=== PATIENT | female | born 1955 | race Caucasian/White ===

== ENCOUNTER → 2016-08-14 | Outpatient (CLI) | payer OTHER ==
--- NOTE | 2016-08-14 09:57 | US ---
EXAMINATION TYPE: US thyroid st tissue head/neck DATE OF EXAM: 08/14/2016 COMPARISON: NONE CLINICAL HISTORY: R13.10 Dyspagia. Dysphagia GLAND SIZE: Right Lobe: 4.3 x 1.0 x 1.7 cm Overall Parenchyma: homogenous Left Lobe: 4.0 x 0.9 x 1.5 cm Overall Parenchyma: homogeneous Isthmus Thickness: 0.3 cm NODULES RIGHT: # of nodules measured on right: 2 1. 0.3 X 0.2 x 0.2 cm hypoechoic mixed nodule at the mid pole with well-defined margins. This nodul e is wider than tall and shows no intranodular vascularity. Prior size: no previous 2. 0.2 X 0.1 x 0.2 cm hypoechoic mixed nodule at the mid pole with well-defined margins. This nodule is wider than tall and shows no intranodular vascularity. Prior size: no previous LEFT: # of nodules measured on left: 0 ISTHMUS: # of nodules measured in the isthmus: 0 Bilateral neck scanned, no evidence of lymphadenopathy. Homogeneous thyroid with multiple tiny right lobe nodules described above. IMPRESSION: 1. Small subcentimeter right lobe thyroid nodules.
== END | disposition home or self-care (01) ==
LOC: RADUSWWP 08:53
PROVIDERS: ATTEND Family Medicine
DX: E04.2 Nontoxic multinodular goiter (principal)
CPT/HCPCS: 76536

== ENCOUNTER 2016-09-28 20:05 | Emergency (ER) | payer OTHER ==
[2016-09-28 20:56] VITALS: RESP 18
--- NOTE | 2016-09-28 21:55 | XR ---
Exam: Left forearm complete HISTORY: Fall with pain. 3 views of the left forearm were obtained. FINDINGS: There is an acute complete comminuted fracture of the distal radius with minimal dorsal displacement and minimal impaction. There is also complete fracture of the ulnar styloid process. Soft tissue swel ling is noted at the wrist. IMPRESSION: Comminuted fracture of the distal radius with an ulnar styloid fracture.
--- NOTE | 2016-09-28 21:56 | XR ---
Exam: Left hand complete. 4 views left hand were obtained. FINDINGS: There is an acute comminuted minimally displaced fracture of the distal left radius. There is also co mplete fracture of the ulnar styloid. Soft tissue swelling is noted about the wrist. IMPRESSION: Complete comminuted fracture of the distal radius with an ulnar styloid fracture.
--- NOTE | 2016-09-28 22:00 | XR ---
Exam: Left wrist complete 4 views left wrist were obtained. HISTORY: Fall on outstretched hand with pain. FINDINGS: There is an acute complete comminuted and minimally dorsally displaced fracture of the distal left ra dius. There is a complete fracture of the ulnar styloid which is minimally displaced. The scapholunate interval is appropriate. No scaphoid fracture is identified at the time of this exam ination. The lunate appears appropriately rotated. IMPRESSION: Comminuted fracture of the distal left radius with an ulnar styloid fracture.
--- NOTE | 2016-09-28 22:23 | ED ---
Upper Extremity HPI - General Chief Complaint: Extremity Injury, Upper Stated Complaint: Fall Arm Pain Time Seen by Provider: 09/28/16 21:03 Source: patient Mode of arrival: ambulatory Limitations: no limitations - History of Present Illness Initial Comments: Patient is a left-handed 61-year-old female presenting to the emergency department with chief complaint of left arm pain. Patient states that approximately 2 hours prior to arrival she was out walking in her garden when she tripped over a small fence and landed on her left arm. Patient is currently rating pain 8 out of 10 exacerbated with movement minimally relieved with rest. Patient describes pain as sharp and throbbing. Patient denies any previous injury or surgery to her left upper extremity. Patient denies any numbness or tingling. Patient states she applied ice prior to arrival but doesn 't believe in taking any medications. Patient denies any recent illness, fevers , nausea, vomiting, shortness of breath, chest pain, or abdominal pain. - Related Data Home Medications Medication Instructions Recorded Confirmed No Known Home Medications [No 09/28/16 09/28/16 Known Home Medications] Allergies Allergy/AdvReac Type Severity Reaction Status Date / Time No Known Allergies Allergy Verified 09/28/16 20:56 Review of Systems ROS Statement: Those systems with pertinent positive or pertinent negative responses have been documented in the HPI. ROS Other: All systems not noted in ROS Statement are negative. Past Medical History Past Medical History: No Reported History Additional Past Medical History / Comment(s): kidney stone History of Any Multi-Drug Resistant Organisms: None Reported Past Surgical History: No Surgical Hx Reported Past Psychological History: No Psychological Hx Reported Smoking Status: Never smoker Past Alcohol Use History: None Reported Past Drug Use History: None Reported General Exam Limitations: no limitations General appearance: alert, anxious Head exam: Present: atraumatic, normocephalic, normal inspection Eye exam: Present: normal appearance Neck exam: Present: normal inspection, full ROM. Absent: tenderness, lymphadenopathy Respiratory exam: Present: normal lung sounds bilaterally. Absent: respiratory distress, wheezes, rales, rhonchi Cardiovascular Exam: Present: regular rate, normal rhythm, normal heart sounds. Absent: systolic murmur GI/Abdominal exam: Present: soft, normal bowel sounds. Absent: distended Left Shoulder Exam: Present: normal inspection, full ROM. Absent: tenderness, swelling Upper Arm exam: Present: normal inspection, full ROM. Absent: tenderness, swelling Elbow exam: Present: normal inspection, full ROM. Absent: tenderness, swelling Forearm Wrist exam: Present: tenderness, swelling, deformity. Absent: full ROM (Decreasing some motion secondary to pain), tenderness over anatomical snuff box , pain with axial thumb loading Hand Wrist exam: Present: full ROM, tenderness, ecchymosis (Ecchymosis noted to dorsal aspect of left hand). Absent: swelling, deformity Neuro motor exam: Present: wrist extension intact, thumb opposition intact, thumb IP flexion intact, thumb adduction intact, fingers 2-5 abduction intact Neurosensory exam: Present: 2-point discrimination, radial nerve intact, ulnar nerve intact, median nerve intact Vascular: Present: normal capillary refill, radial pulse, brachial pulse, ulnar pulse. Absent: vascular compromise Neurological exam: Present: alert, oriented X3, other (No focal deficits noted) . Absent: motor sensory deficit Psychiatric exam: Present: normal affect, normal mood Skin exam: Present: warm, dry, intact Course Vital Signs 09/28/16 20:52 Temperature 100.3 F H Pulse Rate 73 Respiratory 18 Rate Blood Pressure 163/85 O2 Sat by Pulse 94 L Oximetry Procedures - Orthopedic Splinting/Casting Injury #1 Side: left Upper Extremity Injury Location: forearm Upper Extremity Immobilizer: sling/shoulder immobilizer, sugar tong splint Additional Comments: Patient able to move all digits on left hand after splint application. Radial and ulna pulses palpable. No numbness or tingling per patient. Medical Decision Making - Medical Decision Making Acute comminuted minimally displaced fracture of the distal left radius with complete fracture of the ulnar styloid. Soft tissue swelling is noted above the wrist. Did speak with Ana Humphrey physician shipping and receiving assistant, for [facility] who recommended the patient be placed in splint with follow-up in office tomorrow. Patient placed in sugar tong splint and provided arm sling. Patient tolerated procedure well. Patient did receive 1 dose of Motrin in the emergency department. Patient encouraged to use ice, elevation, and pain medication for comfort. Patient agrees with treatment plan. Discharge instructions and return parameters reviewed. - Radiology Data Radiology results: report reviewed X-ray of left hand: Acute comminuted minimally displaced fracture of the distal left radius. There is also complete fracture of the ulnar styloid. Soft tissue swelling is noted above the wrist. X-ray of left wrist: Comminuted fracture of the distal left radius with an ulnar styloid fracture. X-ray of left forearm: Comminuted fracture of the distal radius with an ulnar styloid fracture. Disposition Clinical Impression: Fracture of distal radius and ulna Disposition: HOME SELF-CARE Condition: Good Instructions: Arm Fracture in Adults (ED), Splint Care (ED) Additional Instructions: Avoid activity that causes pain Ice 20 minutes 4 times Keep elevated as much as possible 24-48 hours. Continue Motrin 800 every 8 hours [id number] for next 24-48 hours Return to the emergency department with symptoms of increased swelling, pain, numbness, tingling, or foot feeling cold to touch. Follow-up with orthopedic service as directed. Referrals: Lynnette Jackson MD [Primary Care Provider] - 1-2 days Roberto Donnelly DO [Doctor of Osteopathic Medicine] - 1-2 days (Follow-up on ) Time of Disposition: 22:53
[2016-09-28] MEDS ORDERED: IBUPROFEN 800 MG TAB PO STA ×2 (22:47→23:03)
[2016-09-28 23:11] VITALS: BP 120/75; PULSE 85; TEMP 97.8
== END 2016-09-28 23:06 | disposition home or self-care (01) ==
LOC: EC 20:05
DX: S52.612A Displaced fracture of left ulna styloid process, initial encounter for closed fracture (principal); S52.502A Unspecified fracture of the lower end of left radius, initial encounter for closed fracture; W18.09XA Striking against other object with subsequent fall, initial encounter; Y92.007 Garden or yard of unspecified non-institutional (private) residence as the place of occurrence of the external cause; Y93.01 Activity, walking, marching and hiking
CPT/HCPCS: 29105; 99283

== ENCOUNTER → 2016-12-31 | Outpatient (CLI) | payer OTHER ==
--- NOTE | 2016-12-31 15:15 | BD ---
EXAMINATION TYPE: MG DEXA axial skeleton. DATE OF EXAM: 12/31/2016 COMPARISON: NONE CLINICAL HISTORY: Postmenopausal female Height: 61 IN Weight: 152 LBS FRAX RISK QUESTIONS: Alcohol (3 or more units per day): NO Family History (Parent hip fracture): NO Glucocorticoids (More than 3mos): NO (Ex: prednisone, prednisolone, methylprednisolone, dexamethasone, and hydrocortisone). History of Fracture in Adulthood: YES LEFT WRIST AGE 61 Secondary Osteoporosis: 1. Type 1 Diabetes: NO 2. Hyperthyroidism: NO 3. Menopause before 45: NO 4. Malnutrition: NO 5. Chronic liver disease: NO Rheumatoid Arthritis: NO Current Tobacco Use: NO RISK FACTORS HISTORY OF: History of Wrist Fracture: YES LEFT When: AGE 61 Active: YES Postmenopausal woman: AGE 48 MEDICATIONS: NONE EXAM MEASUREMENTS: Bone mineral densitometry was performed using the Digital [employer] System. Bone mineral density as measured about the Lumbar spine is: ----- L1-L4(G/cm2): 0.947 T Score Values are as follows: ----- L2: -2.7 ----- L3: -1.9 ----- L4: -1.7 ----- L1-L4: -1.9 Bone mineral density BASELINE Bone mineral density about the R hip (g/cm2): 0.857 Bone mineral density about the L hip (g/cm2): 0.870 T Score values are as follows: -----R Neck: -1.3 -----L Neck: -1.2 -----R Total: -0.5 -----L Total: -0.8 Bone mineral density BASELINE IMPRESSION: Osteopenia (T Score between -2.5 and -1 as noted by T score values overall in the low back and at fem oral neck level in both hips. There is slightly increased risk of fracture and the patient may be considered for treatment. Re-Screen 2-5 years. NOTE: T-SCORE=SD OF THE YOUNG ADULT MEAN.
--- NOTE | 2017-01-01 13:50 | MM ---
Reason for exam: screening (asymptomatic). Last mammogram was performed 2 years and 11 months ago. History: Patient is postmenopausal. Family history of breast cancer in sister at age 54. Benign core biopsy of the left breast, 2004. Physical Findings: A clinical breast exam by your physician is recommended on an annual basis and results should be correlated with mammographic findings. MG Screening Mammo w CAD Bilateral CC and MLO view(s) were taken. Prior study comparison: February 14, 2014, bilateral MG screening mammo w CAD. January 19, 2013, [facility] DIGITAL LEFT BREAST MAMMOGRAM w/CAD. The breast tissue is heterogeneously dense. This may lower the sensitivity of mammography. There are two masses in the upper outer quadrant of the right breast at posterior depth. No suspicious abnormality in the left breast. ASSESSMENT: Incomplete: need additional imaging evaluation, BI-RAD 0 RECOMMENDATION: Special view mammogram of the right breast. If lesion persists on supplemental views, image directed ultrasound is recommended. [facility] will attempt to contact patient to return for supplemental views and ultrasound if indicated.
== END | disposition home or self-care (01) ==
LOC: RADMAMWWP 14:19
PROVIDERS: ATTEND Family Medicine
DX: Z12.31 Encounter for screening mammogram for malignant neoplasm of breast (principal); M85.851 Other specified disorders of bone density and structure, right thigh; M85.852 Other specified disorders of bone density and structure, left thigh
CPT/HCPCS: 77080; G0202

== ENCOUNTER → 2017-01-15 | Outpatient (CLI) | payer OTHER ==
--- NOTE | 2017-01-15 12:05 | MM ---
Reason for exam: additional evaluation requested from abnormal screening. Last mammogram was performed less than 1 month ago. History: Patient is postmenopausal. Family history of breast cancer in sister at age 54. Benign core biopsy of the left breast, 2004. Physical Findings: Nurse did not find any significant physical abnormalities on exam. MG 3D Work Up W/Cad RT CC, spot compression MLO, and ML view(s) were taken of the right breast. Prior study comparison: December 31, 2016, bilateral MG screening mammo w CAD. February 14, 2014, bilateral MG screening mammo w CAD. The breast tissue is heterogeneously dense. This may lower the sensitivity of mammography. The two questioned nodular asymmetries in the upper outer quadrant do not persist on spot 3D views. However, two 5mm nodular asymmetries become apparent at 8 and 9 o'clock on the lateral view. These results were verbally communicated with the patient and result sheet given to the patient on 01/15/17. ASSESSMENT: Incomplete: need additional imaging evaluation, BI-RAD 0 RECOMMENDATION: Ultrasound of the right breast. (8-10 o'clock)
--- NOTE | 2017-01-15 12:07 | USB ---
Reason for exam: additional evaluation requested from abnormal screening. History: Patient is postmenopausal. Family history of breast cancer in sister at age 54. Benign core biopsy of the left breast, 2004. US Breast Workup Limited RT Right breast ultrasound demonstrates no cystic or solid lesion seen. Ductal ectasia noted. A 6 month follow up mammogram recommended. These results were verbally communicated with the patient and result sheet given to the patient on 01/15/17. ASSESSMENT: Probably benign, BI-RAD 3 RECOMMENDATION: Follow-up diagnostic mammogram of the right breast in 6 months. (to include ML view)
== END ==
LOC: RADMAMWWP 10:45
PROVIDERS: ATTEND Family Medicine
DX: R92.8 Other abnormal and inconclusive findings on diagnostic imaging of breast (principal)
CPT/HCPCS: 76642; G0206; G0279

== ENCOUNTER 2017-04-21 11:50 | Day surgery (SDC) | payer OTHER ==
[2017-04-17 16:50] VITALS: BMI 28.7
[~2017-04-21 11:50] MED LIST: LACTATED RINGERS 1,000 ML IV SCH
[2017-04-21] MEDS ORDERED: LIDOCAINE 1% 20 ML VIAL (10MG/ML) FOR IV START INTRADERMA ONE (13:28)
[2017-04-21 13:34] VITALS: RESP 16; TEMP 97.6
[2017-04-21] MEDS ORDERED: PROPOFOL 10 MG/ML 20 ML VIAL IV ONE (14:16)
[2017-04-21] MEDS ORDERED: LIDOCAINE 1% INJ 10MG/ML (20 ML MDV) ONE (14:16)
--- NOTE | 2017-04-21 14:40 | P.PCN ---
Date of Procedure: 04/21/17 Procedure(s) Performed: Procedure: Total colonoscopy. Preoperative diagnosis: Screening for neoplasia. Postoperative diagnosis: Sigmoid diverticulosis with no evidence of acute diverticulitis, strictures, polyps or cancer. Preparation: HalfLytely prep. Sedation: Was provided by anesthesia. Brief clinical history: The patient is a 61-year-old female who is referred for this evaluation for screening for neoplasia. She had one prior exam more than 15 years ago. Her sister had breast cancer and has been has colon cancer but there is no family history of colon cancer. She has no abdominal complaints, bleeding or anemia. Procedure: With the patient on her left lateral decubitus position and after informed consent and adequate sedation, the perianal area was inspected and it did not show any fissures or fistulas. There were no masses felt on digital rectal examination. The Olympus CFQ 160L video colonoscope was then inserted in the rectum in the usual fashion and advanced to the cecum. There were several diverticular orifices seen scattered in the sigmoid with no evidence of acute diverticulitis or strictures. No polyps or tumors were seen. I retroflexed the endoscope in the rectum before the endoscope was withdrawn. The patient tolerated the procedure well. Plan: The patient was reassured. Discussed dietary measures. I recommended repeat exam in 10 years. She will follow-up with you as planned.
[2017-04-21 14:56] VITALS: BP 121/68; PULSE 89
== END 2017-04-21 15:10 | disposition home or self-care (01) ==
LOC: ORWHC2ENDO 11:50
DX: Z12.11 Encounter for screening for malignant neoplasm of colon (principal); K57.30 Diverticulosis of large intestine without perforation or abscess without bleeding; Z87.442 Personal history of urinary calculi
CPT/HCPCS: J2001; J2704; G0121; 45378

== ENCOUNTER → 2017-04-24 | Outpatient (CLI) | payer OTHER ==
--- NOTE | 2017-04-25 09:02 | US ---
EXAMINATION TYPE: US thyroid st tissue head/neck DATE OF EXAM: 04/24/2017 COMPARISON: Thyroid ultrasound August 14, 2016 CLINICAL HISTORY: R22.1 Localized swelling, mass and lump/neck. Patient feels "marble" like sensation in throat on and off GLAND SIZE: Right Lobe: 4.1 x 1.3 x 1.5 cm Overall Parenchyma: homogenous Left Lobe: 3.8 x 0.9 x 1.4 cm Overall Parenchyma: homogeneous Isthmus Thickness: 0.3 cm NODULES RIGHT: # of nodules measured on right: 0 LEFT: # of nodules measured on left: 0 ISTHMUS: # of nodules measured in the isthmus: 0 Bilateral neck scanned, no evidence of lymphadenopathy. Tiny nodules marked prior study are insignificant measuring 3 mm or smaller. They are not present or not marked on current study IMPRESSION: Normal-sized thyroid without new worrisome nodules. No significant change from prior.
== END | disposition home or self-care (01) ==
LOC: RADUSWWP 15:38
PROVIDERS: ATTEND Family Medicine
DX: R22.1 Localized swelling, mass and lump, neck (principal)
CPT/HCPCS: 76536

== ENCOUNTER → 2018-03-23 | Outpatient (CLI) | payer OTHER ==
--- NOTE | 2018-03-23 11:50 | MM ---
Reason for exam: additional evaluation requested from prior study. Last mammogram was performed 1 year and 2 months ago. History: Patient is postmenopausal. Family history of breast cancer in sister at age 54. Benign core biopsy of the left breast, 2004. Physical Findings: Nurse did not find any significant physical abnormalities on exam. MG 3D Diag Mammo W/Cad ERON Bilateral CC and MLO view(s) were taken. Prior study comparison: January 15, 2017, right breast MG 3d work up w/cad RT. December 31, 2016, bilateral MG screening mammo w CAD. The breast tissue is heterogeneously dense. This may lower the sensitivity of mammography. Previous mammotome biopsy in the left breast. There is chronic nodularity in the left breast. No significant new findings when compared with previous films. These results were verbally communicated with the patient and result sheet given to the patient on 03/23/18. ASSESSMENT: Benign, BI-RAD 2 RECOMMENDATION: Routine screening mammogram of both breasts in 1 year.
== END | disposition home or self-care (01) ==
LOC: RADMAMWWP 10:52
PROVIDERS: ATTEND Family Medicine
DX: R92.8 Other abnormal and inconclusive findings on diagnostic imaging of breast (principal)
CPT/HCPCS: 77066; G0279; 77062

== ENCOUNTER → 2019-03-07 | Outpatient (CLI) | payer OTHER ==
[2019-03-07 17:05] LABS: Basophils # (A) 0.1 k/uL (0-0.2); Basophils % (A) 1 %; Eosinophils # (A) 0.1 k/uL (0-0.7); Eosinophils % (A) 2 %; HCT 44.6 % (34.0-46.0); HGB 13.7 gm/dL (11.4-16.0); Hypochromasia Marked; Lymphocytes # (A) 3.2 k/uL (1.0-4.8); Lymphocytes % (A) 43 %; MCH 21.7 pg (25.0-35.0); MCHC 30.6 g/dL (31.0-37.0); MCV 70.9 fL (80.0-100.0); Mean Platelet Volume 9.4; Microcytosis Moderate; Monocytes # (A) 0.3 k/uL (0-1.0); Monocytes % (A) 4 %; Neutrophils # (A) 3.6 k/uL (1.3-7.7); Neutrophils % (A) 48 %; Platelet Count 293 k/uL (150-450); RBC 6.29 m/uL (3.80-5.40); RDW 14.1 % (11.5-15.5); WBC 7.5 k/uL (3.8-10.6)
[2019-03-08 01:45] LABS: African American GFR (CKD) 111.6 (60.0-200.0); Albumin 4.7 g/dL (3.80-4.90); Albumin/Globulin Ratio 2.47 (1.60-3.17); Anion Gap 14.3 mmol/L (4.00-12.00); BUN/Creat Ratio 21.67 Ratio (12.00-20.00); Calcium 9.8 mg/dL (8.7-10.3); Carbon Dioxide 21.7 mmol/L (21.6-31.8); Chol/HDL Ratio 2.78; Globulin 1.9 g/dL (1.6-3.3); LDL Cholesterol,Calculated 179.2 mg/dL (0.0-131.0); Non-African American GFR(CKD) 96.3 (60.0-200.0); Potassium 4.2 mmol/L (3.5-5.5); Total Bilirubin 0.7 mg/dL (0.2-1.2); Total Protein 6.6 g/dL (6.2-8.2); VLDL Calculation 12.8 mg/dL (5.00-40.00)
== END | disposition home or self-care (01) ==
LOC: LABWHC1 15:56
PROVIDERS: ATTEND Family Medicine
DX: E78.5 Hyperlipidemia, unspecified (principal)
CPT/HCPCS: 36415; 80053; 80061; 84443; 85025

== ENCOUNTER → 2019-04-28 | Outpatient (CLI) | payer OTHER ==
--- NOTE | 2019-04-28 08:57 | MM ---
Reason for exam: additional evaluation requested from prior study. Last mammogram was performed 1 year and 1 month ago. History: Patient is postmenopausal. Family history of breast cancer in sister at age 54. Benign core biopsy of the left breast, 2004. Physical Findings: Nurse did not find any significant physical abnormalities on exam. MG 3D Diag Mammo W/Cad ERON Bilateral CC and MLO view(s) were taken. Prior study comparison: March 23, 2018, bilateral MG 3d diag mammo w/cad ERON. January 15, 2017, right breast MG 3d work up w/cad RT. The breast tissue is heterogeneously dense. This may lower the sensitivity of mammography. Finding: There is a 16 mm circumscribed oval mass in the left breast consistent with simple cyst on ultrasound from 2012. Previous mammotome biopsy in the left breast. There is no new dominant lesion. These results were verbally communicated with the patient and result sheet given to the patient on 04/28/19. ASSESSMENT: Benign, BI-RAD 2 RECOMMENDATION: Routine screening mammogram of both breasts in 1 year.
== END | disposition home or self-care (01) ==
LOC: RADMAMWWP 07:40
PROVIDERS: ATTEND Family Medicine
DX: R92.8 Other abnormal and inconclusive findings on diagnostic imaging of breast (principal)
CPT/HCPCS: 77066; G0279; 77062

== ENCOUNTER 2019-12-27 07:54 | Observation (INO) | payer MEDICARE, OTHER ==
[2019-12-27] MEDS ORDERED: ONDANSETRON 4 MG/2 ML VIAL IVP STA (08:15)
[2019-12-27] MEDS ORDERED: PANTOPRAZOLE 40 MG/10 ML VIAL IVP STA (08:15)
[2019-12-27] MEDS ORDERED: HYDROmorphone 1 MG/ML 1 ML SYRINGE IVP STA (08:15)
--- NOTE | 2019-12-27 08:18 | ED ---
General Adult HPI - General Chief complaint: Abdominal Pain Stated complaint: Abd pain Time Seen by Provider: 12/27/19 08:04 Source: patient, RN notes reviewed Mode of arrival: ambulatory Limitations: no limitations - History of Present Illness Initial comments: Patient is a pleasant 5 he 4-year-old female presenting to the emergency Department with abdominal discomfort. Patient has had some mild bloating over the past couple of weeks. Symptoms have worsened over the past day or 2. As comfort is now right lower abdomen. Patient had fever last night and the day before. Patient did have nausea yesterday with one episode of vomiting. No constipation or diarrhea. No history of similar symptoms previously. Discomfort is mild at this time. - Related Data Home Medications Medication Instructions Recorded Confirmed No Known Home Medications 09/28/16 03/22/19 Allergies Allergy/AdvReac Type Severity Reaction Status Date / Time No Known Allergies Allergy Verified 12/27/19 08:01 Review of Systems ROS Statement: Those systems with pertinent positive or pertinent negative responses have been documented in the HPI. ROS Other: All systems not noted in ROS Statement are negative. Constitutional: Denies: fever Eyes: Denies: eye pain ENT: Denies: ear pain Respiratory: Denies: cough Cardiovascular: Denies: chest pain Endocrine: Denies: fatigue Gastrointestinal: Reports: as per HPI, abdominal pain, nausea Genitourinary: Reports: frequency. Denies: urgency, dysuria, hematuria Musculoskeletal: Denies: back pain Skin: Denies: rash Neurological: Denies: weakness Past Medical History Past Medical History: No Reported History Additional Past Medical History / Comment(s): kidney stone History of Any Multi-Drug Resistant Organisms: None Reported Past Surgical History: No Surgical Hx Reported Additional Past Surgical History / Comment(s): COLONOSCOPY Past Anesthesia/Blood Transfusion Reactions: No Reported Reaction Past Psychological History: No Psychological Hx Reported Smoking Status: Never smoker Past Alcohol Use History: None Reported - Past Family History Brother(s) Family Medical History: Cancer Sister(s) Family Medical History: Cancer Additional Family Medical History / Comment(s): Breast cancer. Father Family Medical History: Myocardial Infarction ([place]) Mother Family Medical History: Diabetes Mellitus Additional Family Medical History / Comment(s): First cousin had colon cancer. General Exam Limitations: no limitations General appearance: alert, in no apparent distress Head exam: Present: normocephalic Eye exam: Present: normal appearance Neck exam: Present: normal inspection Respiratory exam: Present: normal lung sounds bilaterally Cardiovascular Exam: Present: regular rate, normal rhythm Expanded Peripheral pulses: 2+: Dorsalis Pedis (R), Dorsalis Pedis (L) GI/Abdominal exam: Present: soft, tenderness (Moderate tenderness right lower quadrant), normal bowel sounds. Absent: distended, guarding, rebound, rigid, p ulsatile mass Extremities exam: Present: normal inspection Neurological exam: Present: alert Psychiatric exam: Present: normal affect, normal mood Skin exam: Present: normal color Course Vital Signs 12/27/19 07:55 Temperature 97.6 F Pulse Rate 85 Respiratory 18 Rate Blood Pressure 151/93 O2 Sat by Pulse 99 Oximetry Medical Decision Making - Medical Decision Making Patient reevaluated and updated. Case was discussed with Dr. Moreno who will admit and does request antibiotics. Patient does not meet sepsis criteria at this time. - Lab Data Result diagrams: 12/27/19 08:58 12/27/19 08:58 Lab Results 12/27/19 12/27/19 12/27/19 Range/Units 08:58 08:58 08:58 WBC 11.2 H (3.8-10.6) k/uL RBC 5.67 H (3.80-5.40) m/uL Hgb 12.5 (11.4-16.0) gm/dL Hct 38.5 (34.0-46.0) % MCV 67.8 L (80.0-100.0) fL MCH 22.0 L (25.0-35.0) pg MCHC 32.5 (31.0-37.0) g/dL RDW 13.9 (11.5-15.5) % Plt Count 258 (150-450) k/uL Neutrophils % 66 % Lymphocytes % 24 % Monocytes % 6 % Eosinophils % 1 % Basophils % 1 % Neutrophils # 7.4 (1.3-7.7) k/uL Lymphocytes # 2.7 (1.0-4.8) k/uL Monocytes # 0.7 (0-1.0) k/uL Eosinophils # 0.1 (0-0.7) k/uL Basophils # 0.1 (0-0.2) k/uL Microcytosis Marked PT 9.7 (9.0-12.0) sec INR 0.9 (<1.2) APTT 23.4 (22.0-30.0) sec Sodium (137-145) mmol/L Potassium (3.5-5.1) mmol/L Chloride (98-107) mmol/L Carbon Dioxide (22-30) mmol/L Anion Gap mmol/L BUN (7-17) mg/dL Creatinine (0.52-1.04) mg/dL Est GFR (CKD-EPI)AfAm (>60 ml/min/1.73 sqM) Est GFR (CKD-EPI)NonAf (>60 ml/min/1.73 sqM) Glucose (74-99) mg/dL Plasma Lactic Acid Syed (0.7-2.0) mmol/L Calcium (8.4-10.2) mg/dL Total Bilirubin (0.2-1.3) mg/dL AST (14-36) U/L ALT (4-34) U/L Alkaline Phosphatase (38-126) U/L Total Protein (6.3-8.2) g/dL Albumin (3.5-5.0) g/dL Amylase (30-110) U/L Lipase (23-300) U/L Urine Color Colorless Urine Appearance Clear (Clear) Urine pH 7.0 (5.0-8.0) Ur Specific Stevinson 1.002 (1.001-1.035) Urine Protein Negative (Negative) Urine Glucose (UA) Negative (Negative) Urine Ketones Negative (Negative) Urine Blood Negative (Negative) Urine Nitrite Negative (Negative) Urine Bilirubin Negative (Negative) Urine Urobilinogen <2.0 (<2.0) mg/dL Ur Leukocyte Esterase Small H (Negative) Urine RBC <1 (0-5) /hpf Urine WBC 2 (0-5) /hpf Ur Squamous Epith Cells <1 (0-4) /hpf 12/27/19 12/27/19 Range/Units 08:58 08:58 WBC (3.8-10.6) k/uL RBC (3.80-5.40) m/uL Hgb (11.4-16.0) gm/dL Hct (34.0-46.0) % MCV (80.0-100.0) fL MCH (25.0-35.0) pg MCHC (31.0-37.0) g/dL RDW (11.5-15.5) % Plt Count (150-450) k/uL Neutrophils % % Lymphocytes % % Monocytes % % Eosinophils % % Basophils % % Neutrophils # (1.3-7.7) k/uL Lymphocytes # (1.0-4.8) k/uL Monocytes # (0-1.0) k/uL Eosinophils # (0-0.7) k/uL Basophils # (0-0.2) k/uL Microcytosis PT (9.0-12.0) sec INR (<1.2) APTT (22.0-30.0) sec Sodium 136 L (137-145) mmol/L Potassium 4.4 (3.5-5.1) mmol/L Chloride 102 (98-107) mmol/L Carbon Dioxide 28 (22-30) mmol/L Anion Gap 6 mmol/L BUN 13 (7-17) mg/dL Creatinine 0.57 (0.52-1.04) mg/dL Est GFR (CKD-EPI)AfAm >90 (>60 ml/min/1.73 sqM) Est GFR (CKD-EPI)NonAf >90 (>60 ml/min/1.73 sqM) Glucose 105 H (74-99) mg/dL Plasma Lactic Acid Syed 0.9 (0.7-2.0) mmol/L Calcium 9.0 (8.4-10.2) mg/dL Total Bilirubin 0.7 (0.2-1.3) mg/dL AST 25 (14-36) U/L ALT 17 (4-34) U/L Alkaline Phosphatase 87 (38-126) U/L Total Protein 6.9 (6.3-8.2) g/dL Albumin 4.0 (3.5-5.0) g/dL Amylase 78 (30-110) U/L Lipase 72 (23-300) U/L Urine Color Urine Appearance (Clear) Urine pH (5.0-8.0) Ur Specific Stevinson (1.001-1.035) Urine Protein (Negative) Urine Glucose (UA) (Negative) Urine Ketones (Negative) Urine Blood (Negative) Urine Nitrite (Negative) Urine Bilirubin (Negative) Urine Urobilinogen (<2.0) mg/dL Ur Leukocyte Esterase (Negative) Urine RBC (0-5) /hpf Urine WBC (0-5) /hpf Ur Squamous Epith Cells (0-4) /hpf - Radiology Data Radiology results: report reviewed (As discussed with radiology, computed tomography scan concerning for acute appendicitis without complication) Disposition Clinical Impression: Acute appendicitis Disposition: ADMITTED IP TO THIS HOSP Is patient prescribed a controlled substance at d/c from ED?: No Referrals: Lynnette Jackson MD [Primary Care Provider] - 1-2 days Decision Time: 10:37
[2019-12-27] MEDS: SODIUM CHLORIDE 0.9% 1,000 ML IV STA ×2 (08:58→11:03)
[2019-12-27 09:10] LABS: Basophils # (A) 0.1 k/uL (0-0.2); Basophils % (A) 1 %; Eosinophils # (A) 0.1 k/uL (0-0.7); Eosinophils % (A) 1 %; HCT 38.5 % (34.0-46.0); HGB 12.5 gm/dL (11.4-16.0); Lymphocytes # (A) 2.7 k/uL (1.0-4.8); Lymphocytes % (A) 24 %; MCHC 32.5 g/dL (31.0-37.0); MCV 67.8 fL (80.0-100.0); Mean Platelet Volume 8.7; Microcytosis Marked; Monocytes # (A) 0.7 k/uL (0-1.0); Monocytes % (A) 6 %; Neutrophils # (A) 7.4 k/uL (1.3-7.7); Neutrophils % (A) 66 %; Platelet Count 258 k/uL (150-450); RBC 5.67 m/uL (3.80-5.40); RDW 13.9 % (11.5-15.5); WBC 11.2 k/uL (3.8-10.6)
[2019-12-27 09:20] LABS: ALT 17 U/L (4-34); AST 25 U/L (14-36); African American GFR (CKD) >90 (>60 ml/min/1.73 sqM); Alkaline Phosphatase 87 U/L (38-126); Amylase 78 U/L (30-110); Anion Gap 6 mmol/L; Blood Urea Nitrogen 13 mg/dL (7-17); Carbon Dioxide 28 mmol/L (22-30); Chloride 102 mmol/L (98-107); Glucose 105 mg/dL (74-99); Lipase 72 U/L (23-300); Non-African American GFR(CKD) >90 (>60 ml/min/1.73 sqM); Potassium 4.4 mmol/L (3.5-5.1); Sodium 136 mmol/L (137-145); Total Bilirubin 0.7 mg/dL (0.2-1.3); Total Protein 6.9 g/dL (6.3-8.2)
[2019-12-27 09:23] LABS: INR 0.9 (<1.2); Partial Thromboplastin Time 23.4 sec (22.0-30.0); Prothrombin Time 9.7 sec (9.0-12.0)
[2019-12-27 09:59] LABS: Appearance,Urine Clear (Clear); Bilirubin,Urine Negative (Negative); Blood,Urine Negative (Negative); Color,Urine Colorless; Glucose,Urine (UA) Negative (Negative); Ketones,Urine Negative (Negative); Leukocyte Esterase,Urine Small (Negative); Nitrite,Urine Negative (Negative); Protein,Urine Negative (Negative); RBC,Urine <1 /hpf (0-5); Specific Gravity,Urine 1.002 (1.001-1.035); Squamous Epithelial Cell,Urine <1 /hpf (0-4); Urobilinogen,Urine <2.0 mg/dL (<2.0); WBC,Urine 2 /hpf (0-5)
--- NOTE | 2019-12-27 10:33 | CT ---
EXAMINATION TYPE: CT abdomen pelvis w con DATE OF EXAM: 12/27/2019 COMPARISON: None HISTORY: Right lower quadrant pain, bloating CT DLP: 893.7 mGycm Automated exposure control for dose reduction was used. CONTRAST: CT scan of the abdomen pelvis is performed with IV Contrast, patient injected with 100 mL of Isovue 3 00. FINDINGS- LUNG BASES-basilar subsegmental atelectasis favored over infiltrate with a 4 mm subpleural left lower lobe pulmonary nodule. LIVER/GB-tiny gallstone suspected.. PANCREAS- No gross abnormality is seen. SPLEEN- No gross abnormality is seen. ADRENALS- No gross abnormality is seen. KIDNEYS/BLADDER-calyceal diverticulum on the left are seen with cortical loss with chronic medical re nal disease. BOWEL-there is a diffuse inflammatory change in the right lower quadrant with trace amount of fluid. There is no sizable abscess. No free air. Diverticulosis of the colon. LYMPH NODES- No greater than 1cm abdominal or pelvic lymph nodes are appreciated. OSSEOUS STRUCTURES-hypertrophic and degenerative changes of the spine.. OTHER- tiny periumbilical hernia. There is a cyst in the left adnexa likely related to 1.7 cm. Surgi taya clips are seen in the left pelvis. Aorta of normal caliber. IMPRESSION- 1. Acute appendicitis with diffuse inflammatory changes involving the right lower quadrant. No absces s or free air 2. 4 mm subpleural left lower lobe pulmonary nodule likely benign. Twelve-month follow-up recommended . 3. Tiny gallstones. 4. Cortical thinning and calyceal diverticulum on the left kidney. Correlate for chronic medical yaquelin l disease.
[2019-12-27] MEDS ORDERED: NALOXONE 0.4 MG/ML 1 ML VIAL IV PRN (10:37)
[2019-12-27] MEDS ORDERED: ONDANSETRON 4 MG/2 ML VIAL IVP PRN (10:37)
[2019-12-27] MEDS ORDERED: HYDROmorphone 1 MG/ML 1 ML SYRINGE IVP PRN (10:37)
[2019-12-27] MEDS ORDERED: HYDROmorphone 0.5 MG/0.5 ML SYRINGE IVP PRN (10:37)
[2019-12-27] MEDS ORDERED: AMPICILLIN-SULBACTAM 1.5 GM in SODIUM CHLORIDE 0.9% 50 ML IVPB STA (10:44)
[2019-12-27] MEDS: SODIUM CHLORIDE 0.9% 1,000 ML IV SCH ×2 (11:03→23:02)
--- NOTE | 2019-12-27 14:50 | P.GSHP ---
History of Present Illness H&P Date: 12/27/19 CHIEF COMPLAINT: Right lower quadrant abdominal pain HISTORY OF PRESENT ILLNESS: This is a 64-year-old female with a known history of kidney stones. She presents to emergency room with complaints of right lower quadrant abdominal pain. Over the last couple weeks she's had some bloating and stomach discomfort. And over the past 2 days her abdominal pain had removed from the center of the abdomen down to the right lower quadrant. Pain is severe. She has had one episode of vomiting. She has nausea. Denies any bowel movement changes. Denies any urinary symptoms. Denies any fever chills or sweats. Computed tomography scan showed evidence of appendicitis. WBC elevated. Patient has been admitted also for acute appendicitis. PAST MEDICAL HISTORY: See list. PAST SURGICAL HISTORY: See list. MEDICATIONS: See list. ALLERGIES: See list. SOCIAL HISTORY: No illicit drug use. REVIEW OF SYSTEMS: CONSTITUTIONAL: Denies fever or chills. HEENT: Denies blurred vision, vision changes, or eye pain. Denies hemoptysis CARDIOVASCULAR: Denies chest pain or pressure. RESPIRATORY: No shortness of breath. GASTROINTESTINAL: See HPI for pertinent findings HEMATOLOGIC: Denies bleeding disorders. GENITOURINARY: Denies any blood in urine or increased urinary frequency. SKIN: Denies pruitis. Denies rash. PHYSICAL EXAM: VITAL SIGNS: Reviewed GENERAL: Well-developed in no acute distress. HEENT: No sclera icterus. Extraocular movements grossly intact. Moist buccal mucosa. Head is atraumatic, normocephalic. No nasal drainage. ABDOMEN: Soft. Nondistended. Right lower quadrant tenderness NEUROLOGIC: Alert and oriented. Cranial nerves II through XII grossly intact. LABORATORY DATA: WBC 11.2 hemoglobin 12.5 LFTs and lipase normal UA negative IMAGING: Computed tomography scan abdomen and pelvis showing acute appendicitis with diffuse inflammatory changes involving the right lower quadrant. No abscess or free air. 4 mm subpleural left lower lobe pulmonary nodule likely benign. Tiny gallstones. Cortical thinning and diverticulum in the left kidney ASSESSMENT: 1. Acute appendicitis PLAN: -Patient scheduled for a laparoscopic appendectomy tomorrow with Dr. silva -Continue IV antibiotics -Continue IV fluids -Continue pain medications as needed -Consult medicine for medical management Physician Line Crew Supervisor note has been reviewed by physician. Signing provider agrees with the documented findings, assessment, and plan of care. Past Medical History Past Medical History: No Reported History Additional Past Medical History / Comment(s): kidney stone History of Any Multi-Drug Resistant Organisms: None Reported Past Surgical History: No Surgical Hx Reported Additional Past Surgical History / Comment(s): COLONOSCOPY Past Anesthesia/Blood Transfusion Reactions: No Reported Reaction Past Psychological History: No Psychological Hx Reported Smoking Status: Never smoker Past Alcohol Use History: None Reported Past Drug Use History: None Reported - Past Family History Brother(s) Family Medical History: Cancer Sister(s) Family Medical History: Cancer Additional Family Medical History / Comment(s): Breast cancer. Father Family Medical History: Myocardial Infarction ([place]) Mother Family Medical History: Diabetes Mellitus Additional Family Medical History / Comment(s): First cousin had colon cancer. Medications and Allergies Home Medications Medication Instructions Recorded Confirmed Type No Known Home Medications 09/28/16 12/27/19 History Allergies Allergy/AdvReac Type Severity Reaction Status Date / Time No Known Allergies Allergy Verified 12/27/19 11:22 Surgical - Exam Vital Signs Temp Pulse Resp BP Pulse Ox 97.6 F 85 18 151/93 99 12/27/19 07:55 12/27/19 07:55 12/27/19 07:55 12/27/19 07:55 12/27/19 07:55 Results - Labs 12/27/19 08:58 12/27/19 08:58 Abnormal Lab Results - Last 24 Hours (Table) 12/27/19 12/27/19 12/27/19 Range/Units 08:58 08:58 08:58 WBC 11.2 H (3.8-10.6) k/uL RBC 5.67 H (3.80-5.40) m/uL MCV 67.8 L (80.0-100.0) fL MCH 22.0 L (25.0-35.0) pg Sodium 136 L (137-145) mmol/L Glucose 105 H (74-99) mg/dL Ur Leukocyte Esterase Small H (Negative) Diabetes panel 12/27/19 Range/Units 08:58 Sodium 136 L (137-145) mmol/L Potassium 4.4 (3.5-5.1) mmol/L Chloride 102 (98-107) mmol/L Carbon Dioxide 28 (22-30) mmol/L BUN 13 (7-17) mg/dL Creatinine 0.57 (0.52-1.04) mg/dL Glucose 105 H (74-99) mg/dL Calcium 9.0 (8.4-10.2) mg/dL AST 25 (14-36) U/L ALT 17 (4-34) U/L Alkaline Phosphatase 87 (38-126) U/L Total Protein 6.9 (6.3-8.2) g/dL Albumin 4.0 (3.5-5.0) g/dL Calcium panel 12/27/19 Range/Units 08:58 Calcium 9.0 (8.4-10.2) mg/dL Albumin 4.0 (3.5-5.0) g/dL Pituitary panel 12/27/19 Range/Units 08:58 Sodium 136 L (137-145) mmol/L Potassium 4.4 (3.5-5.1) mmol/L Chloride 102 (98-107) mmol/L Carbon Dioxide 28 (22-30) mmol/L BUN 13 (7-17) mg/dL Creatinine 0.57 (0.52-1.04) mg/dL Glucose 105 H (74-99) mg/dL Calcium 9.0 (8.4-10.2) mg/dL Adrenal panel 12/27/19 Range/Units 08:58 Sodium 136 L (137-145) mmol/L Potassium 4.4 (3.5-5.1) mmol/L Chloride 102 (98-107) mmol/L Carbon Dioxide 28 (22-30) mmol/L BUN 13 (7-17) mg/dL Creatinine 0.57 (0.52-1.04) mg/dL Glucose 105 H (74-99) mg/dL Calcium 9.0 (8.4-10.2) mg/dL Total Bilirubin 0.7 (0.2-1.3) mg/dL AST 25 (14-36) U/L ALT 17 (4-34) U/L Alkaline Phosphatase 87 (38-126) U/L Total Protein 6.9 (6.3-8.2) g/dL Albumin 4.0 (3.5-5.0) g/dL
[2019-12-27] MEDS ORDERED: DEXAMETHASONE SOD PHOSPHATE 4 MG/ML 1 ML VIAL IV ONE (15:52)
[2019-12-27] MEDS ORDERED: LIDOCAINE 1% (10MG/ML) FOR IV START INTRADERMA PRN (15:52)
[2019-12-27] MEDS: PIPERACILLIN-TAZOBACTAM 3.375 GM in SODIUM CHLORIDE 0.9% 100 ML IVPB SCH ×2 (16:13→23:01)
--- NOTE | 2019-12-27 16:18 | P.CONS ---
History of Present Illness - History of Present Illness this is a pleasant 64 years old female with no significant past medical history. she is a patient of Dr. Lieberman. Presents because ofright lower quadrant abdominal pain3-4 weeks duration get worse over the last 3-4 days, Like sharp pain about 5-6/10 in severity associated with vomiting one time, no change in urine or bowel habits. CT of the abdomen and pelvis with contrast:diffuse inflammatory change in the right lower quadrant.with acute appendicitis, his or free air. 4 mm subpleural left lower lobe pulmonary nodule likely benign recommend 12 months follow-up. Review of Systems CONSTITUTIONAL: No fever, no malaise, no fatigue. HEENT: No recent visual problems or hearing problems. Denied any sore throat. CARDIOVASCULAR: No orthopnea, PND, no palpitations, no syncope. PULMONARY: No shortness of breath, no cough, no hemoptysis. GASTROINTESTINAL: No diarrhea, no nausea. Normoactive bowel sounds. NEUROLOGICAL: No headaches, no weakness, no numbness. HEMATOLOGICAL: Denies any bleeding or petechiae. GENITOURINARY: Denies any burning micturition, frequency, or urgency. MUSCULOSKELETAL/RHEUMATOLOGICAL: Denies any joint pain, swelling, or any muscle pain. ENDOCRINE: Denies any polyuria or polydipsia. Past Medical History Past Medical History: No Reported History Additional Past Medical History / Comment(s): kidney stone History of Any Multi-Drug Resistant Organisms: None Reported Past Surgical History: No Surgical Hx Reported Additional Past Surgical History / Comment(s): COLONOSCOPY Past Anesthesia/Blood Transfusion Reactions: No Reported Reaction Past Psychological History: No Psychological Hx Reported Smoking Status: Never smoker Past Alcohol Use History: None Reported Past Drug Use History: None Reported - Past Family History Brother(s) Family Medical History: Cancer Sister(s) Family Medical History: Cancer Additional Family Medical History / Comment(s): Breast cancer. Father Family Medical History: Myocardial Infarction ([place]) Mother Family Medical History: Diabetes Mellitus Additional Family Medical History / Comment(s): First cousin had colon cancer. Medications and Allergies Home Medications Medication Instructions Recorded Confirmed Type No Known Home Medications 09/28/16 12/27/19 History Allergies Allergy/AdvReac Type Severity Reaction Status Date / Time No Known Allergies Allergy Verified 12/27/19 11:22 Physical Exam Vitals: Vital Signs Temp Pulse Pulse Resp BP BP Pulse Ox 12/27/19 11:45 98.9 F 64 18 124/80 99 12/27/19 11:27 99.4 F 65 18 162/76 98 12/27/19 07:55 97.6 F 85 18 151/93 99 Intake and Output 12/27/19 12/27/19 12/27/19 06:59 14:59 22:59 Other: # Voids 1 Weight 69.853 kg GENERAL: The patient is alert and oriented x3, not in any acute distress. Well developed, well nourished. HEENT: Pupils are round and equally reacting to light. EOMI. No scleral icterus. No conjunctival pallor. Normocephalic, atraumatic. No pharyngeal erythema. No thyromegaly. CARDIOVASCULAR: S1 and S2 present. No murmurs, rubs, or gallops. PULMONARY: Chest is clear to auscultation, no wheezing or crackles. -ABDOMEN: Soft, right lower quadrant tenderness, nondistended, normoactive bowel sounds. No palpable organomegaly. MUSCULOSKELETAL: No joint swelling or deformity. EXTREMITIES: No cyanosis, clubbing, or pedal edema. NEUROLOGICAL: Gross neurological examination did not reveal any focal deficits. SKIN: No rashes. No petechiae Results CBC & Chem 7: 12/27/19 08:58 12/27/19 08:58 Labs: Abnormal Lab Results - Last 24 Hours (Table) 12/27/19 12/27/19 12/27/19 Range/Units 08:58 08:58 08:58 WBC 11.2 H (3.8-10.6) k/uL RBC 5.67 H (3.80-5.40) m/uL MCV 67.8 L (80.0-100.0) fL MCH 22.0 L (25.0-35.0) pg Sodium 136 L (137-145) mmol/L Glucose 105 H (74-99) mg/dL Ur Leukocyte Esterase Small H (Negative) Assessment and Plan Assessment: acute appendicitis 4 mm subpleural left lower lobe pulmonary nodule, recommend follow-up as an out patient Mild leukocytosis Plan: this is a pleasant 64 years old female who presents with acute appendicitis. Follow-up with surgery for laparoscopic appendicectomy tomorrow.continue with antibiotic. Gentle hydration. Labs and medication were reviewed.. Continue same treatment. Continue with symptomatic treatment. Resume home medication. Monitor lytes and vitals. DVT and GI prophylaxis. Further recommendations depends on the clinical course of the patient DVT prophylaxis: Subcutaneous heparin GI Prophylaxis: Pepcid PT/OT: Pending Prognosis is guarded
[2019-12-27] MEDS: LACTATED RINGERS 1,000 ML IV SCH (16:45)
[2019-12-27] MEDS ORDERED: AMPICILLIN-SULBACTAM 1.5 GM in SODIUM CHLORIDE 0.9% 50 ML IVPB SCH (18:00)
[2019-12-27] MEDS: FAMOTIDINE 20 MG/2 ML VIAL IV SCH (23:02)
[2019-12-27] MEDS: HEPARIN SODIUM,PORCINE 5,000 UNIT/ML 1 ML VIAL SQ SCH (23:02)
[2019-12-28] MEDS ORDERED: DEXAMETHASONE SOD PHOSPHATE 4 MG/ML 1 ML VIAL IV ONE (05:00)
[2019-12-28 06:58] LABS: Basophils % (A) 1 %; Eosinophils # (A) 0.1 k/uL (0-0.7); Eosinophils % (A) 2 %; HCT 37.7 % (34.0-46.0); HGB 11.8 gm/dL (11.4-16.0); Hypochromasia Slight; Lymphocytes # (A) 2.2 k/uL (1.0-4.8); Lymphocytes % (A) 30 %; MCH 21.7 pg (25.0-35.0); MCHC 31.3 g/dL (31.0-37.0); MCV 69.5 fL (80.0-100.0); Mean Platelet Volume 8.3; Microcytosis Moderate; Monocytes # (A) 0.5 k/uL (0-1.0); Monocytes % (A) 7 %; Neutrophils # (A) 4.3 k/uL (1.3-7.7); Neutrophils % (A) 59 %; Platelet Count 266 k/uL (150-450); RBC 5.42 m/uL (3.80-5.40); RDW 13.9 % (11.5-15.5); WBC 7.3 k/uL (3.8-10.6)
[2019-12-28 07:06] LABS: African American GFR (CKD) >90 (>60 ml/min/1.73 sqM); Anion Gap 5 mmol/L; Blood Urea Nitrogen 7 mg/dL (7-17); Calcium 8.6 mg/dL (8.4-10.2); Carbon Dioxide 25 mmol/L (22-30); Chloride 109 mmol/L (98-107); Glucose 107 mg/dL (74-99); Non-African American GFR(CKD) >90 (>60 ml/min/1.73 sqM); Potassium 4.4 mmol/L (3.5-5.1); Sodium 139 mmol/L (137-145)
[2019-12-28] MEDS: PIPERACILLIN-TAZOBACTAM 3.375 GM in SODIUM CHLORIDE 0.9% 100 ML IVPB SCH ×2 (08:47→16:09)
[2019-12-28] MEDS: FAMOTIDINE 20 MG/2 ML VIAL IV SCH ×2 (08:48→20:47)
[2019-12-28] MEDS: HEPARIN SODIUM,PORCINE 5,000 UNIT/ML 1 ML VIAL SQ SCH ×2 (08:48→20:47)
[2019-12-28] MEDS: SODIUM CHLORIDE 0.9% 1,000 ML IV SCH ×2 (08:48→12:42)
[2019-12-28] MEDS ORDERED: PANTOPRAZOLE 40 MG/10 ML VIAL IV SCH (09:00)
[2019-12-28] MEDS: ACETAMINOPHEN TAB 500 MG TAB PO PRN (11:36)
--- NOTE | 2019-12-28 12:14 | P.PN ---
Subjective this is a pleasant 64 years old female with no significant past medical history. she is a patient of Dr. Lieberman. Presents because ofright lower quadrant abdominal pain3-4 weeks duration get worse over the last 3-4 days, Like sharp pain about 5-6/10 in severity associated with vomiting one time, no change in urine or bowel habits. CT of the abdomen and pelvis with contrast:diffuse inflammatory change in the right lower quadrant.with acute appendicitis, his or free air. 4 mm subpleural left lower lobe pulmonary nodule likely benign recommend 12 months follow-up. 12/28/2019 Patient still complaining of from right lower quadrant abdominal pain, no other new complaints. She is hemodynamically stable. Patient is scheduled for laparoscopic appendectomy by surgery team today. Objective - Vital Signs Vital signs: Vital Signs Temp 98.5 F 12/28/19 08:36 Pulse 67 12/28/19 08:36 Resp 20 12/28/19 08:36 BP 103/68 12/28/19 08:36 Pulse Ox 94 L 12/28/19 08:36 Intake & Output 12/27/19 12/28/19 12/28/19 18:59 06:59 18:59 Intake Total 1080 Balance 1080 Weight 69.853 kg Intake: Oral 1080 Other: # Voids 1 2 2 - Exam GENERAL: The patient is alert and oriented x3, not in any acute distress. Well developed, well nourished. HEENT: Pupils are round and equally reacting to light. EOMI. No scleral icterus. No conjunctival pallor. Normocephalic, atraumatic. No pharyngeal erythema. No thyromegaly. CARDIOVASCULAR: S1 and S2 present. No murmurs, rubs, or gallops. PULMONARY: Chest is clear to auscultation, no wheezing or crackles. -ABDOMEN: Soft, right lower quadrant tenderness, nondistended, normoactive bowel sounds. No palpable organomegaly. MUSCULOSKELETAL: No joint swelling or deformity. EXTREMITIES: No cyanosis, clubbing, or pedal edema. NEUROLOGICAL: Gross neurological examination did not reveal any focal deficits. SKIN: No rashes. no petechiae. - Labs CBC & Chem 7: 12/28/19 06:41 12/28/19 06:41 Labs: Abnormal Lab Results - Last 24 Hours (Table) 12/28/19 12/28/19 Range/Units 06:41 06:41 RBC 5.42 H (3.80-5.40) m/uL MCV 69.5 L (80.0-100.0) fL MCH 21.7 L (25.0-35.0) pg Chloride 109 H (98-107) mmol/L Glucose 107 H (74-99) mg/dL Microbiology - Last 24 Hours (Table) 12/27/19 08:58 Blood Culture - Preliminary Blood No Growth after 24 hours Assessment and Plan Assessment: acute appendicitis 4 mm subpleural left lower lobe pulmonary nodule, recommend follow-up as an outpatient Mild leukocytosis Plan: this is a pleasant 64 years old female who presents with acute appendicitis. Follow-up with surgery for laparoscopic appendicectomy tomorrow.continue with antibiotic. Gentle hydration. Labs and medication were reviewed.. Continue same treatment. Continue with symptomatic treatment. Resume home medication. Monitor lytes and vitals. DVT and GI prophylaxis. Further recommendations depends on the clinical course of the patient DVT prophylaxis: Subcutaneous heparin GI Prophylaxis: Pepcid PT/OT: Pending Prognosis is guarded
[2019-12-28] MEDS ORDERED: IV FLUID CONTINUATION 1,000 ML IV ONE (13:42)
[2019-12-28] MEDS ORDERED: GLYCOPYRROLATE 0.2 MG/ML 2 ML VIAL ONE (14:01)
[2019-12-28] MEDS ORDERED: LIDOCAINE 1% INJ 10MG/ML (20 ML MDV) ONE (14:01)
[2019-12-28] MEDS ORDERED: SUCCINYLCHOLINE CHLORIDE 100 MG/5 ML SYR IV ONE (14:01)
[2019-12-28] MEDS ORDERED: ROCURONIUM 10 MG/ML (10 ML VIAL) IV ONE (14:01)
[2019-12-28] MEDS ORDERED: MIDAZOLAM 2 MG/2 ML VIAL ONE (14:01)
[2019-12-28] MEDS ORDERED: NEOSTIGMINE 1 MG/ML 10 ML VIAL ONE (14:01)
[2019-12-28] MEDS ORDERED: KETOROLAC 15 MG/ML 1 ML VIAL ONE (14:01)
[2019-12-28] MEDS ORDERED: PROPOFOL 10 MG/ML 20 ML VIAL IV ONE (14:01)
[2019-12-28] MEDS ORDERED: fentaNYL (PF) 50 MCG/ML 2 ML AMP ONE (14:01)
[2019-12-28] MEDS ORDERED: ONDANSETRON 4 MG/2 ML VIAL IVP ONE ×2 (14:04→15:03)
[2019-12-28] MEDS ORDERED: BUPIVACAINE (PF) 0.25% 30 ML VIAL SQ ONE (14:30)
--- NOTE | 2019-12-28 14:44 | P.OP ---
Date of Procedure: 12/28/19 Preoperative Diagnosis: Appendicitis Postoperative Diagnosis: Appendicitis Procedure(s) Performed: H laparoscopic appendectomy Anesthesia: MAGGIE Surgeon: Sammy Moreno Estimated Blood Loss (ml): 5 Pathology: other (Appendix) Condition: stable Disposition: PACU Description of Procedure: HThe patient's placed on the operating table in the supine position. The patient received general anesthesia. The abdomen was prepped and draped in the usual sterile fashion. The skin was anesthetized 1% local Xylocaine at the trocar sites. Using an 11 blade the skin was incised at the umbilicus. The umbilicus was grasped with a [place] clamp and then a Veress needle was placed into the peritoneal cavity. Position of the Veress needle was confirmed with positive drop test. After adequate insufflation a 5 mm trocar was placed into the peritoneal cavity. The abdomen was further insufflated. And then the laparoscope was placed in the peritoneal cavity. Next a 5 mm trocar was placed in the midline suprapubic position. And then a 10 mm trocar was placed in the midline epigastric position. The patient was rotated with the right side up and in Trendelenburg. The appendix was visualized. The appendix appeared to be inflamed. The appendix was grasped and then using the Harmonic scissors the mesoappendix was divided. A PDS Endoloop was then placed around the base of the appendix. And then the appendix was divided using Harmonic scissors. The appendix was placed into an Endo Catch and brought out through the 10 mm trocar site. The abdomen was irrigated. There is no bleeding seen. The trochars withdrawn. The skin was closed interrupted 3-0 Monocryl suture. Dermabond dressing was applied. Patient was sent to recovery room in stable condition.
[2019-12-28] MEDS ORDERED: HYDROmorphone 0.5 MG/0.5 ML SYRINGE IVP ONE (15:07)
[2019-12-28] MEDS: LACTATED RINGERS 1,000 ML IV SCH (16:48)
[2019-12-29] MEDS: ACETAMINOPHEN TAB 500 MG TAB PO PRN ×2 (00:03→06:57)
[2019-12-29] MEDS: PIPERACILLIN-TAZOBACTAM 3.375 GM in SODIUM CHLORIDE 0.9% 100 ML IVPB SCH ×2 (00:03→07:39)
[2019-12-29] MEDS: SODIUM CHLORIDE 0.9% 1,000 ML IV SCH ×3 (00:04→09:28)
[2019-12-29] MEDS: FAMOTIDINE 20 MG/2 ML VIAL IV SCH (08:31)
[2019-12-29] MEDS: HEPARIN SODIUM,PORCINE 5,000 UNIT/ML 1 ML VIAL SQ SCH (08:31)
--- NOTE | 2019-12-29 08:47 | P.PN ---
Subjective this is a pleasant 64 years old female with no significant past medical history. she is a patient of Dr. Lieberman. Presents because ofright lower quadrant abdominal pain3-4 weeks duration get worse over the last 3-4 days, Like sharp pain about 5-6/10 in severity associated with vomiting one time, no change in urine or bowel habits. CT of the abdomen and pelvis with contrast:diffuse inflammatory change in the right lower quadrant.with acute appendicitis, his or free air. 4 mm subpleural left lower lobe pulmonary nodule likely benign recommend 12 months follow-up. 12/28/2019 Patient still complaining of from right lower quadrant abdominal pain, no other new complaints. She is hemodynamically stable. Patient is scheduled for laparoscopic appendectomy by surgery team today. 12/29/2019 Patient is status post laparoscopic appendectomy yesterday. Today's postop day #1. He is sitting up in bed, in no distress. She has stopped some residual pain at the surgical site in the right lower quadrant which is expected. No nausea vomiting, she is a liquid diet and tolerates diet well. She passes some gaseous but no bowel movement. She is hemodynamically stable. WBC is back to normal yesterday at 7.3 k. She remains on Zosyn patient is aware about her pulmonary nodules and she was asking about the size of it today. Patient states and willing to follow up with her PCP Dr. Lieberman one week as instructed. Objective - Vital Signs Vital signs: Vital Signs Temp 97.5 F L 12/29/19 07:41 Pulse 82 12/29/19 07:41 Resp 16 12/29/19 07:41 BP 94/57 12/29/19 07:41 Pulse Ox 95 12/29/19 07:41 Intake & Output 12/28/19 12/29/19 12/29/19 18:59 06:59 18:59 Intake Total 700 500 Output Total 5 1600 Balance 695 -1100 Intake: IV 700 Oral 500 Output: Urine 1600 Estimated Blood Loss 5 Other: # Voids 2 1 - Exam GENERAL: The patient is alert and oriented x3, not in any acute distress. Well developed, well nourished. HEENT: Pupils are round and equally reacting to light. EOMI. No scleral icterus. No conjunctival pallor. Normocephalic, atraumatic. No pharyngeal erythema. No thyromegaly. CARDIOVASCULAR: S1 and S2 present. No murmurs, rubs, or gallops. PULMONARY: Chest is clear to auscultation, no wheezing or crackles. -ABDOMEN: Soft, right lower quadrant tenderness, nondistended, normoactive bowel sounds. No palpable organomegaly. MUSCULOSKELETAL: No joint swelling or deformity. EXTREMITIES: No cyanosis, clubbing, or pedal edema. NEUROLOGICAL: Gross neurological examination did not reveal any focal deficits. SKIN: No rashes. no petechiae. - Labs CBC & Chem 7: 12/28/19 06:41 12/28/19 06:41 Labs: Microbiology - Last 24 Hours (Table) 12/27/19 08:58 Blood Culture - Preliminary Blood No Growth after 24 hours Assessment and Plan Assessment: acute appendicitis, status post laparoscopic appendectomy 4 mm subpleural left lower lobe pulmonary nodule, recommend follow-up as an outpatient Mild leukocytosis, improved Plan: this is a pleasant 64 years old female who presents with acute appendicitis. Status post laparoscopic appendicectomy .continue with antibiotic. Gentle hydration. Follow-up as an outpatient with PCP regarding her pulmonary nodules. Rest of management we'll defer to the surgery primary team Labs and medication were reviewed.. Continue same treatment. Continue with symptomatic treatment. Resume home medication. Monitor lytes and vitals. DVT and GI prophylaxis. Further recommendations depends on the clinical course of the patient DVT prophylaxis: Subcutaneous heparin GI Prophylaxis: Pepcid
[2019-12-29] MEDS ORDERED: HYDROcodone/APAP 5-325MG 1 EACH TAB PO PRN (10:20)
[2019-12-29 12:17] VITALS: BP 131/72; PULSE 63; RESP 18; TEMP 97.2
--- NOTE | 2019-12-29 13:49 | P.DS ---
Providers Date of admission: 12/27/19 10:37 Expected date of discharge: 12/29/19 Attending physician: Sammy Moreno Consults: 12/27/19 14:38 Consult Physician Routine Consulting Provider: Consuelo Ellis Consult Reason/Comments: Medical management Do you want consulting provider notified?: Yes Primary care physician: Lynnette Jackson Hospital Course: Discharge diagnosis 1. Acute appendicitis status post laparoscopic appendectomy Hospital course his is a 64-year-old female with a known history of kidney stones. She presents to emergency room with complaints of right lower quadrant abdominal pain. Over the last couple weeks she's had some bloating and stomach discomfort. And over the past 2 days her abdominal pain had removed from the center of the abdomen down to the right lower quadrant. Pain is severe. She has had one episode of vomiting. She has nausea. Computed tomography scan showed evidence of appendicitis. WBC elevated. Patient's pain is controlled. She is tolerating diet. She's afebrile. She is ambulating without difficulty. She is stable for discharge. Physician Recreation Director note has been reviewed by physician. Signing provider agrees with the documented findings, assessment, and plan of care. Patient Condition at Discharge: Stable Plan - Discharge Summary Discharge Rx Participant: No New Discharge Prescriptions: New Docusate [Colace] 100 mg PO BID #30 capsule Levofloxacin [Levaquin] 500 mg PO DAILY 7 Days #7 tab Hydrocodone/Acetaminophen [[place] 5-325] 1 tab PO Q6HR PRN 3 Days #12 tab PRN Reason: Pain Discharge Medication List Docusate [Colace] 100 mg PO BID #30 capsule 12/29/19 [Rx] Hydrocodone/Acetaminophen [[place] 5-325] 1 tab PO Q6HR PRN 3 Days #12 tab 12/29/19 [Rx] Levofloxacin [Levaquin] 500 mg PO DAILY 7 Days #7 tab 12/29/19 [Rx] Follow up Appointment(s)/Referral(s): Lynnette Jackson MD [Primary Care Provider] - 01/06/20 1:30 pm Sammy Moreno MD [STAFF PHYSICIAN] - 01/05/20 3:00 pm Activity/Diet/Wound Care/Special Instructions: No driving while taking [place] No lifting over 10 pounds You may shower. No soaking or tub baths for 2 weeks Very light activity until you are reevaluated at your follow up appointment with your surgeon Discharge Disposition: HOME SELF-CARE
== END 2019-12-29 14:11 | disposition home or self-care (01) ==
LOC: EC 07:54 → 6PED 10:37
PROVIDERS: ADMIT Surgery; ATTEND Surgery
DX: K35.80 Unspecified acute appendicitis (principal); Z87.442 Personal history of urinary calculi; Z80.3 Family history of malignant neoplasm of breast; Z82.49 Family history of ischemic heart disease and other diseases of the circulatory system; Z83.3 Family history of diabetes mellitus; Z80.0 Family history of malignant neoplasm of digestive organs; R91.1 Solitary pulmonary nodule; N28.89 Other specified disorders of kidney and ureter; K80.20 Calculus of gallbladder without cholecystitis without obstruction
CPT/HCPCS: 96372 ×2; 96376; 96374; 96375; 99285; 36415; 80053; 80048; 82150; 83605; 83690; 85025 ×2; 85610; 85730; 81001; 87040; 74177; 44970; G0378 ×3; J2543 ×3; J2250; J1644 ×2; J1100; J2710; J2405 ×2; J2001; J3010; J1170 ×2; J0295; J1885; J0330; J2704; C9113; Q9967

== ENCOUNTER → 2020-01-18 | Outpatient (CLI) | payer MEDICARE, OTHER ==
[2020-01-18 07:06] LABS: African American GFR (CKD) >90 (>60 ml/min/1.73 sqM); Blood Urea Nitrogen 19 mg/dL (7-17); Non-African American GFR(CKD) 80 (>60 ml/min/1.73 sqM)
--- NOTE | 2020-01-18 09:03 | CT ---
EXAMINATION TYPE: CT chest w con DATE OF EXAM: 01/18/2020 COMPARISON: Correlation CT abdomen and pelvis 12/27/2019 HISTORY: 64-year-old female Solitary Pulmonary Nodule TECHNIQUE: Contiguous axial scanning of the chest after the administration of 100 mL of Isovue 300. Coronal/sagittal reconstructions performed. CT DLP: 195.5mGycm. Automatic exposure control utilized for a dose reduction. FINDINGS: Known 1.1 cm cyst within the upper-outer quadrant of left breast. However, there is secondary 7 mm no dularity near the 12 to 1:00 position centrally, axial image 19 and diagnostic mammographic workup to exclude a new density. Heart upper limits of normal in size without pericardial effusion. Aorta normal caliber with mild atherosclerotic arch calcifications and conventional arch vessel branc bhavani anatomy. Borderline enlarged caliber to the main right and the pulmonary arteries measuring up to 2.6 cm. This can reflect underlying pulmonary hypertension. Scattered nonenlarged mediastinal lymph nodes. No thoracic lymphadenopathy by CT size criteria. 4 mm right middle lobe pulmonary nodules, axial image 35. 5 mm subpleural pulmonary nodule posterolateral left lower lobe, axial image 47. Some strandy atelectasis or scarring within the inferior lingula. No consolidation or pleural effusion. Small hiatal hernia. Visualized upper abdomen shows multiple cortical defects throughout the left ki dney suggesting prior vascular or infectious insults, lower to the recent prior exam. Partially visua lized descending colonic diverticulosis. Bones: Mild to moderate degenerative disc disease midthoracic spine. IMPRESSION: 1. A few bilateral pulmonary nodules measuring up to 5 mm. Twelve-month follow-up CT chest recommende d to reassess. 2. Known cyst in the upper outer quadrant of the left breast. However, there is a second area of 7 mm nodularity near the 12 to 1:00 position centrally in the left breast. Diagnostic mammogram and possi ble ultrasound evaluation recommended to further evaluate. 3. Possible underlying pulmonary arterial hypertension. 4. Small hiatal hernia. Left-sided colonic diverticulosis. Multiple cortical defects within the left kidney suggesting prior vascular or infectious insults.
== END | disposition home or self-care (01) ==
LOC: RADCTMAIN 06:20
PROVIDERS: ATTEND Family Medicine
DX: R91.8 Other nonspecific abnormal finding of lung field (principal); R91.1 Solitary pulmonary nodule; N63.21 Unspecified lump in the left breast, upper outer quadrant; K44.9 Diaphragmatic hernia without obstruction or gangrene; K57.30 Diverticulosis of large intestine without perforation or abscess without bleeding
CPT/HCPCS: 82565; 84520; 71260; 36415; Q9967

== ENCOUNTER → 2020-01-31 | Outpatient (CLI) | payer MEDICARE, OTHER ==
--- NOTE | 2020-01-31 09:05 | MM ---
Reason for exam: clinical finding. Last mammogram was performed 9 months ago. History: Patient is postmenopausal. Family history of breast cancer in sister at age 54. Benign core biopsy of the left breast, 2005. Physical Findings: Nurse did not find any significant physical abnormalities on exam. MG 3D Diag Mammo W/Cad LT CC and MLO view(s) were taken of the left breast. Prior study comparison: April 28, 2019, bilateral MG 3d diag mammo w/cad ERON. March 23, 2018, bilateral MG 3d diag mammo w/cad ERON. The breast tissue is heterogeneously dense. This may lower the sensitivity of mammography. Finding: There is a 14 mm equal density (isodense), circumscribed round mass in the 1 o'clock anterior position of the left breast. There is no discrete abnormality 7mm [address] No significant changes in finding since April 28, 2019 and March 23, 2018. These results were verbally communicated with the patient and result sheet given to the patient on 01/31/20. ASSESSMENT: Benign, BI-RAD 2 RECOMMENDATION: Routine screening mammogram of both breasts in 3 months. Back on schedule for April 2020.
== END | disposition home or self-care (01) ==
LOC: RADMAMWWP 07:00
PROVIDERS: ATTEND Family Medicine
DX: N63.20 Unspecified lump in the left breast, unspecified quadrant (principal)
CPT/HCPCS: 77065; G0279; 77061

== ENCOUNTER → 2020-03-19 | Outpatient (CLI) | payer MEDICARE, OTHER ==
--- NOTE | 2020-03-20 09:47 | XR ---
EXAMINATION TYPE: XR thoracic spine 2V DATE OF EXAM: 03/19/2020 CLINICAL HISTORY: pain TECHNIQUE: Frontal, lateral, and swimmer's view of thoracic spine are obtained. COMPARISON: None. FINDINGS: Thoracic spine show satisfactory alignment without evidence of acute fracture or dislocatio n. Vertebral body heights are preserved. Moderate multilevel degenerative disc space narrowing. Vi sualized ribs are unremarkable. IMPRESSION: No acute fracture or dislocation is seen in the thoracic spine. ICD 10 NO FRACTURE, INIT IAL EVALUATION
== END | disposition home or self-care (01) ==
LOC: RADXRMAIN 14:27
PROVIDERS: ATTEND Family Medicine
DX: M54.5 Low back pain (principal)
CPT/HCPCS: 72070

== ENCOUNTER → 2020-08-10 | Outpatient (CLI) | payer MEDICARE, OTHER ==
--- NOTE | 2020-08-14 10:28 | MM ---
Reason for exam: screening (asymptomatic). Last mammogram was performed 6 months ago. History: Patient is postmenopausal. Family history of breast cancer in sister at age 54. Benign core biopsy of the left breast, 2004. Physical Findings: A clinical breast exam by your physician is recommended on an annual basis and results should be correlated with mammographic findings. MG 3D Screening Mammo W/Cad Bilateral CC and MLO view(s) were taken. XCCL view(s) were taken of the right breast. Prior study comparison: January 31, 2020, left breast MG 3d diag mammo w/cad LT. April 28, 2019, bilateral MG 3d diag mammo w/cad ERON. The breast tissue is heterogeneously dense. This may lower the sensitivity of mammography. Previous mammotome biopsy in the left breast. There is chronic nodularity in the left breast. Central lateral right CC asymmetric density does not persist on XCCL. No significant changes when compared with prior studies. ASSESSMENT: Benign, BI-RAD 2 RECOMMENDATION: Routine screening mammogram of both breasts in 1 year.
== END | disposition home or self-care (01) ==
LOC: RADMAMWWP 06:58
PROVIDERS: ATTEND Family Medicine
DX: Z12.31 Encounter for screening mammogram for malignant neoplasm of breast (principal); Z78.0 Asymptomatic menopausal state; Z80.3 Family history of malignant neoplasm of breast
CPT/HCPCS: 77063; 77067

== ENCOUNTER → 2020-09-12 | Outpatient (CLI) | payer MEDICARE, OTHER ==
--- NOTE | 2020-09-13 08:43 | BD ---
EXAMINATION TYPE: Axial Bone Density DATE OF EXAM: 09/12/2020 COMPARISON: 12/31/2016 CLINICAL HISTORY: Height: 61 IN Weight: 153 LBS RISK FACTORS HISTORY OF: History of Wrist Fracture: YES LEFT FX AGE 61 Surgery to Wrist (left): YES LEFT AGE 61 Active: YES Diet low in dairy products/other sources of calcium: YES Postmenopausal woman: AGE 47 MEDICATIONS: Additional Medications: NONE EXAM MEASUREMENTS: Bone mineral densitometry was performed using the Arithmatica System. Bone mineral density as measured about the Lumbar spine is: ----- L1-L4(G/cm2): 0.934 T Score Values are as follows: ----- L2: -2.2 ----- L3: -2.2 ----- L4: -1.9 ----- L1-L4: -2.0 Bone mineral density has: Decreased -0.2% since study of: 12/31/2016 Bone mineral density about the R hip (g/cm2): 0.871 Bone mineral density about the L hip (g/cm2): 0.903 T Score values are as follows: -----R Neck: -1.2 -----L Neck: -1.0 -----R Total: -0.5 -----L Total: -1.4 Bone mineral density has: Decreased -4.1% since study of: 12/31/2016 IMPRESSION: Osteopenia (T Score between -2.5 and -1). There is slightly increased risk of fracture and the patient may be considered for treatment. Re-Screen 2-5 years. NOTE: T-SCORE=SD OF THE YOUNG ADULT MEAN.
== END | disposition home or self-care (01) ==
LOC: RADBDWWP 07:57
PROVIDERS: ATTEND Family Medicine
DX: Z13.820 Encounter for screening for osteoporosis (principal); M85.80 Other specified disorders of bone density and structure, unspecified site
CPT/HCPCS: 77080

== ENCOUNTER 2021-01-01 08:58 | Inpatient (IN) | payer MEDICARE, OTHER ==
[2021-01-01] MEDS ORDERED: SODIUM CHLORIDE 0.9% 1,000 ML IV STA (09:33)
[2021-01-01] MEDS ORDERED: ALBUTEROL HFA INHALER INHALATION STA (09:33)
[2021-01-01] MEDS ORDERED: DEXAMETHASONE SOD PHOSPHATE 10 MG/ML 1 ML VIAL IVP STA (09:34)
[2021-01-01] MEDS ORDERED: IBUPROFEN 600 MG TAB PO STA (09:34)
[2021-01-01] MEDS ORDERED: ACETAMINOPHEN TAB 500 MG TAB PO STA (09:34)
--- NOTE | 2021-01-01 09:38 | ED ---
General Adult HPI - General Chief complaint: Shortness of Breath Stated complaint: positive covid Time Seen by Provider: 01/01/21 09:00 Source: patient, EMS, RN notes reviewed, old records reviewed Mode of arrival: ambulatory Limitations: no limitations - History of Present Illness Initial comments: This is a 65-year-old female who presents emergency department stating that she started having symptoms and his little and was tested positive for the last week for COVID. Patient states since then she become more fatigued continues to have a fever and continues to have some shortness of breath. Patient states she continues to cough. Patient states she's not eating or drinking lately. Patient states she has severe overall fatigue. Patient denies any chest pain or palpitations. Patient states she does have hemoptysis per patient denies abdominal pain patient was nausea vomiting diarrhea. Patient's any loss of taste or smell. - Related Data Previous Rx's Medication Instructions Recorded Docusate [Colace] 100 mg PO BID #30 capsule 12/29/19 Hydrocodone/Acetaminophen [[place] 1 tab PO Q6HR PRN 3 Days #12 tab 12/29/19 5-325] Levofloxacin [Levaquin] 500 mg PO DAILY 7 Days #7 tab 12/29/19 Allergies Allergy/AdvReac Type Severity Reaction Status Date / Time No Known Allergies Allergy Verified 01/01/21 09:22 Review of Systems ROS Statement: Those systems with pertinent positive or pertinent negative responses have been documented in the HPI. ROS Other: All systems not noted in ROS Statement are negative. Past Medical History Past Medical History: No Reported History Additional Past Medical History / Comment(s): kidney stone History of Any Multi-Drug Resistant Organisms: None Reported Past Surgical History: No Surgical Hx Reported Additional Past Surgical History / Comment(s): COLONOSCOPY Past Anesthesia/Blood Transfusion Reactions: No Reported Reaction Past Psychological History: No Psychological Hx Reported Smoking Status: Never smoker Past Alcohol Use History: None Reported Past Drug Use History: None Reported - Past Family History Brother(s) Family Medical History: Cancer Sister(s) Family Medical History: Cancer Additional Family Medical History / Comment(s): Breast cancer. Father Family Medical History: Myocardial Infarction ([place]) Mother Family Medical History: Diabetes Mellitus Additional Family Medical History / Comment(s): First cousin had colon cancer. General Exam - General Exam Comments Initial Comments: GENERAL: Patient is well-developed and well-nourished. Patient is nontoxic and well- hydrated and is in mild distress. ENT: Neck is soft and supple. No significant lymphadenopathy is noted. Oropharynx is clear. Moist mucous membranes. Neck has full range of motion without eliciting any pain. EYES: The sclera were anicteric and conjunctiva were pink and moist. Extraocular movements were intact and pupils were equal round and reactive to light. Eyelids were unremarkable. PULMONARY: Patient is crackles bilateral bases. CARDIOVASCULAR: There is a regular rate and rhythm without any murmurs gallops or rubs. ABDOMEN: Soft and nontender with normal bowel sounds. SKIN: Skin is clear with no lesions or rashes and otherwise unremarkable. NEUROLOGIC: Patient is alert and oriented x3. Cranial nerves II through XII are grossly intact. Motor and sensory are also intact. Normal speech, volume and content. Symmetrical smile. MUSCULOSKELETAL: Normal extremities with adequate strength and full range of motion. No lower extremity swelling or edema. No calf tenderness. LYMPHATICS: No significant lymphadenopathy is noted PSYCHIATRIC: Normal psychiatric evaluation. Limitations: no limitations Course Vital Signs 01/01/21 09:18 Temperature 99.8 F H Pulse Rate 96 Respiratory 20 Rate Blood Pressure 146/87 O2 Sat by Pulse 99 Oximetry Medical Decision Making - Medical Decision Making EKG shows normal sinus rhythm at 89 bpm [place] interval 134 QRS is 62 QT interval 344 QTC is 418. Patient's EKG shows no ST segment elevation or depression. X-ray shows bilateral foot is consistent with code. Computed tomography scan shows no obvious PE but does show a right breast mass which is follow-up with her mammogram. Patient does have infiltrates on the CAT scan as well. I spoke with because he agreed to admit the patient admitted the patient wr ote admitting orders. Patient was oxygenating 87% on room air - Lab Data Result diagrams: 01/01/21 09:45 01/01/21 09:45 Lab Results 01/01/21 01/01/21 01/01/21 Range/Units 09:45 09:45 09:45 WBC 6.4 (3.8-10.6) k/uL RBC 6.27 H (3.80-5.40) m/uL Hgb 13.4 (11.4-16.0) gm/dL Hct 42.3 (34.0-46.0) % MCV 67.5 L (80.0-100.0) fL MCH 21.4 L (25.0-35.0) pg MCHC 31.7 (31.0-37.0) g/dL RDW 14.5 (11.5-15.5) % Plt Count 214 (150-450) k/uL MPV 9.0 Neutrophils % 79 % Lymphocytes % 13 % Monocytes % 6 % Eosinophils % 0 % Basophils % 1 % Neutrophils # 5.0 (1.3-7.7) k/uL Lymphocytes # 0.9 L (1.0-4.8) k/uL Monocytes # 0.4 (0-1.0) k/uL Eosinophils # 0.0 (0-0.7) k/uL Basophils # 0.0 (0-0.2) k/uL Microcytosis Marked PT 9.8 (9.0-12.0) sec INR 0.9 (<1.2) APTT 24.7 (22.0-30.0) sec Sodium 135 L (137-145) mmol/L Potassium 3.9 (3.5-5.1) mmol/L Chloride 102 (98-107) mmol/L Carbon Dioxide 26 (22-30) mmol/L Anion Gap 7 mmol/L BUN 8 (7-17) mg/dL Creatinine 0.46 L (0.52-1.04) mg/dL Est GFR (CKD-EPI)AfAm >90 (>60 ml/min/1.73 sqM) Est GFR (CKD-EPI)NonAf >90 (>60 ml/min/1.73 sqM) Glucose 123 H (74-99) mg/dL Plasma Lactic Acid Syed (0.7-2.0) mmol/L Calcium 8.7 (8.4-10.2) mg/dL Total Bilirubin 0.3 (0.2-1.3) mg/dL AST 52 H (14-36) U/L ALT 28 (4-34) U/L Alkaline Phosphatase 73 (38-126) U/L Troponin I (0.000-0.034) ng/mL Total Protein 6.5 (6.3-8.2) g/dL Albumin 3.6 (3.5-5.0) g/dL 01/01/21 01/01/21 Range/Units 09:45 09:45 WBC (3.8-10.6) k/uL RBC (3.80-5.40) m/uL Hgb (11.4-16.0) gm/dL Hct (34.0-46.0) % MCV (80.0-100.0) fL MCH (25.0-35.0) pg MCHC (31.0-37.0) g/dL RDW (11.5-15.5) % Plt Count (150-450) k/uL MPV Neutrophils % % Lymphocytes % % Monocytes % % Eosinophils % % Basophils % % Neutrophils # (1.3-7.7) k/uL Lymphocytes # (1.0-4.8) k/uL Monocytes # (0-1.0) k/uL Eosinophils # (0-0.7) k/uL Basophils # (0-0.2) k/uL Microcytosis PT (9.0-12.0) sec INR (<1.2) APTT (22.0-30.0) sec Sodium (137-145) mmol/L Potassium (3.5-5.1) mmol/L Chloride (98-107) mmol/L Carbon Dioxide (22-30) mmol/L Anion Gap mmol/L BUN (7-17) mg/dL Creatinine (0.52-1.04) mg/dL Est GFR (CKD-EPI)AfAm (>60 ml/min/1.73 sqM) Est GFR (CKD-EPI)NonAf (>60 ml/min/1.73 sqM) Glucose (74-99) mg/dL Plasma Lactic Acid Syed 1.0 (0.7-2.0) mmol/L Calcium (8.4-10.2) mg/dL Total Bilirubin (0.2-1.3) mg/dL AST (14-36) U/L ALT (4-34) U/L Alkaline Phosphatase (38-126) U/L Troponin I <0.012 (0.000-0.034) ng/mL Total Protein (6.3-8.2) g/dL Albumin (3.5-5.0) g/dL Disposition Clinical Impression: Pneumonia due to COVID-19 virus, Breast mass Disposition: ADMITTED IP TO THIS HOSP Referrals: Lynnette Jackson MD [Primary Care Provider] - 1-2 days Time of Disposition: 10:54
[2021-01-01 09:51] LABS: Basophils % (A) 1 %; Eosinophils % (A) 0 %; HCT 42.3 % (34.0-46.0); HGB 13.4 gm/dL (11.4-16.0); Lymphocytes # (A) 0.9 k/uL (1.0-4.8); Lymphocytes % (A) 13 %; MCH 21.4 pg (25.0-35.0); MCHC 31.7 g/dL (31.0-37.0); MCV 67.5 fL (80.0-100.0); Microcytosis Marked; Monocytes # (A) 0.4 k/uL (0-1.0); Monocytes % (A) 6 %; Neutrophils % (A) 79 %; Platelet Count 214 k/uL (150-450); RBC 6.27 m/uL (3.80-5.40); RDW 14.5 % (11.5-15.5); WBC 6.4 k/uL (3.8-10.6)
[2021-01-01 10:03] LABS: INR 0.9 (<1.2); Partial Thromboplastin Time 24.7 sec (22.0-30.0); Prothrombin Time 9.8 sec (9.0-12.0)
[2021-01-01 10:14] LABS: ALT 28 U/L (4-34); AST 52 U/L (14-36); African American GFR (CKD) >90 (>60 ml/min/1.73 sqM); Albumin 3.6 g/dL (3.5-5.0); Alkaline Phosphatase 73 U/L (38-126); Anion Gap 7 mmol/L; Blood Urea Nitrogen 8 mg/dL (7-17); Calcium 8.7 mg/dL (8.4-10.2); Carbon Dioxide 26 mmol/L (22-30); Chloride 102 mmol/L (98-107); Glucose 123 mg/dL (74-99); Non-African American GFR(CKD) >90 (>60 ml/min/1.73 sqM); Potassium 3.9 mmol/L (3.5-5.1); Sodium 135 mmol/L (137-145); Total Bilirubin 0.3 mg/dL (0.2-1.3); Total Protein 6.5 g/dL (6.3-8.2)
--- NOTE | 2021-01-01 10:22 | XR ---
EXAMINATION TYPE: XR chest 2V DATE OF EXAM: 01/01/2021 COMPARISON: Chest CT January 18, 2020 HISTORY: Shortness of breath and fever TECHNIQUE: Frontal and lateral views of the chest are obtained. FINDINGS: There there are new bilateral lower lung and peripheral left midlung opacities. The cardi ac silhouette size is stable and mildly enlarged. Slight underlying scoliotic curvature. IMPRESSION: Mild cardiomegaly with bilateral multifocal peripheral and basilar opacities left greate r than right. Findings consistent with covid-19 infection. Correlate clinically.
--- NOTE | 2021-01-01 10:50 | CT ---
EXAMINATION TYPE: CT chest angio for PE DATE OF EXAM: 01/01/2021 COMPARISON: 01/18/2000 HISTORY: SOB, covid positive CT DLP: 249.6 mGycm Automated exposure control for dose reduction was used. CONTRAST: CT Chest for pulmonary embolism performed with with IV Contrast, patient injected with 100 mL of Isov ue 370. FINDINGS: LUNGS: There is bilateral lower lobe infiltrate correlate for pneumonia. No pleural effusion or pneum othorax. Additional multifocal areas of groundglass infiltrate. A degree of chronic obstructive pulmo nary disease in the differential diagnosis. 2 mm subpleural nodule seen in the upper lobes likely smith ign but too small to characterize. MEDIASTINUM: There is motion artifact which limits the exam. Ather osclerotic change of the aorta. Heart size is mildly prominent. Suggestion coronary artery calcificat ion. Assessment the pulmonary arteries is limited due to respiratory motion artifact. Grossly no central p ulmonary embolism is seen. No definite filling defects within the visualized pulmonary arteries to coffey ggest pulmonary embolism. OTHER: Hypertrophic and degenerative changes of the spine. Abnormal soft tissue attenuation in the retroareolar portion of the right breast as well as a nodular density in the lateral margin of the le ft breast recommend follow-up mammogram. Renal cysts suspected which have been reported by previous C T scan. IMPRESSION: 1. Multifocal pneumonia suspected correlate clinically to exclude pulmonary edema. 2. Limited assessment of the pulmonary arteries distal and secondary branches due to motion. No diagn ostic evidence of pulmonary embolism as visualized. 3. Abnormal soft tissue attenuation in the retroareolar portion of the right breast as well as a nodu lar density in the lateral margin of the left breast recommend follow-up mammogram.
[2021-01-01] MEDS: ALBUTEROL HFA INHALER INHALATION SCH ×3 (12:55→20:32)
--- NOTE | 2021-01-01 13:20 | P.CNPUL ---
History of Present Illness Consult date: 01/01/21 Requesting physician: Consuelo Ellis Reason for consult: dyspnea Chief complaint: Shortness of breath, weakness, fever History of present illness: This is a very pleasant 65-year-old female patient a past history of kidney stones. She presented to the emergency room earlier this morning with comp laints of increasing shortness of breath, cough congestion fatigue and weakness. She was diagnosed with COVID-19 10 days ago at urgent care. She is not vaccinated. She's had a poor appetite. Fevers. Progressive shortness of breath. Some hemoptysis. Chest x-ray shows bilateral multifocal peripheral and basilar opacities left greater than right. He scan of the chest revealed multifocal pneumonia. Limited assessment for pulmonary arteries distal and secondary branches. No diagnostic evidence of pulmonary embolism. Consistent with COVID-19 infection. There were incidental findings of soft tissue attenuation in the retroareolar portion of the right breast as well as a nodular density in the lateral margin of the left breast. White count 6.4. Hemoglobin 13.4. Lymphocytes 0.9. Sodium 135. Potassium 3.9. Creatinine 0.46. He is seen today in consultation in the emergency room. She is currently sitting on the stretcher. Awake and alert in no acute distress. Initially hypoxemic at 88% on room air. Currently 98% on 2 L/m per nasal cannula. Afebrile. Hemodynamically stable. Review of Systems REVIEW OF SYSTEMS: CONSTITUTIONAL: Denies weakness, fatigue, fevers. Denies any recent significant weight loss or weight gain. EYES: Denies change in vision. EARS, NOSE, MOUTH, THROAT: Denies headaches, denies sore throat. CARDIOVASCULAR: Denies chest pain, palpitations or syncopal episodes. RESPIRATORY: Positive for shortness of breath, cough, congestion and hemoptysis. GASTROINTESTINAL: Poor appetite, denies abdominal pain GENITOURINARY: Denies hematuria, denies infections. MUSKULOSKELETAL: Denies pain, denies swelling. INTEGUMENTARY: Denies rash, denies eczema. NEUROLOGICAL: Denies recent memory loss, no recent seizure activity. PSYCHIATRIC: Denies anxiety, denies depression. HEMATOLOGIC/LYMPHATIC: Denies anemia, denies enlarged lymph nodes. Past Medical History Past Medical History: No Reported History Additional Past Medical History / Comment(s): kidney stone History of Any Multi-Drug Resistant Organisms: None Reported Past Surgical History: No Surgical Hx Reported Additional Past Surgical History / Comment(s): COLONOSCOPY Past Anesthesia/Blood Transfusion Reactions: No Reported Reaction Past Psychological History: No Psychological Hx Reported Smoking Status: Never smoker Past Alcohol Use History: None Reported Past Drug Use History: None Reported - Past Family History Brother(s) Family Medical History: Cancer Sister(s) Family Medical History: Cancer Additional Family Medical History / Comment(s): Breast cancer. Father Family Medical History: Myocardial Infarction (MS) Mother Family Medical History: Diabetes Mellitus Additional Family Medical History / Comment(s): First cousin had colon cancer. Medications and Allergies Home Medications Medication Instructions Recorded Confirmed Type Alendronate Sodium [Fosamax] 70 mg PO FR 01/01/21 01/01/21 History Ascorbic Acid [Vitamin C] 500 mg PO DAILY 01/01/21 01/01/21 History Cholecalciferol (Vitamin D3) 75 mcg PO DAILY 01/01/21 01/01/21 History [Vitamin D3 (3000 Iu)] Zinc Gluconate [Zinc] 50 mg PO DAILY 01/01/21 01/01/21 History Allergies Allergy/AdvReac Type Severity Reaction Status Date / Time No Known Allergies Allergy Verified 01/01/21 09:22 Physical Exam Vitals: Vital Signs Temp Pulse Resp BP Pulse Ox 01/01/21 11:41 98 01/01/21 11:39 98.6 F 98 18 139/84 88 L 01/01/21 09:18 99.8 F H 96 20 146/87 99 Intake and Output 12/31/20 01/01/21 01/01/21 22:59 06:59 14:59 Other: # Voids 1 Weight 65.771 kg GENERAL EXAM: Alert, very pleasant 65-year-old female, on 2 L nasal cannula, fairly comfortable in no apparent distress. HEAD: Normocephalic. EYES: Normal reaction of pupils, equal size. NOSE: Clear with pink turbinates. THROAT: No erythema or exudates. NECK: No masses, no JVD. CHEST: No chest wall deformity. LUNGS: Equal air entry with crackles in the bilateral posterior bases. CVS: S1 and S2 normal with no audible murmur, regular rhythm. ABDOMEN: No hepatosplenomegaly, normal bowel sounds, no guarding or rigidity. SPINE: No scoliosis or deformity SKIN: No rashes CENTRAL NERVOUS SYSTEM: No focal deficits, tone is normal in all 4 extremities. EXTREMITIES: There is no peripheral edema. No clubbing, no cyanosis. Peripheral pulses are intact. Results - Laboratory Findings CBC and BMP: 01/01/21 09:45 01/01/21 09:45 PT/INR, D-dimer PT 9.8 sec (9.0-12.0) 01/01/21 09:45 INR 0.9 (<1.2) 01/01/21 09:45 Abnormal lab findings: Abnormal Labs 01/01/21 01/01/21 09:45 09:45 RBC 6.27 H MCV 67.5 L MCH 21.4 L Lymphocytes # 0.9 L Sodium 135 L Creatinine 0.46 L Glucose 123 H AST 52 H - Diagnostic Findings Chest x-ray: image reviewed CT scan - chest: image reviewed Assessment and Plan Assessment: 1 Acute hypoxemic respiratory failure secondary to acute COVID-19 pneumonia. Not vaccinated. Outside the window for Remdesivir. 2 History of kidney stones Plan: The patient was seen and evaluated by Dr. Turner Chest x-ray, CAT scans and labs reviewed Add Decadron, Lovenox, vitamin supplements Titrate the FiO2 as tolerated Obtain inflammatory markers Will need outpatient mammogram We will continue to follow and make further recommendations based on her clinical status I, the cosigning physician, performed a history & physical examination of the patient. Lungs sounds crackles in the bilateral posterior bases. Maintaining good O2 saturations in the 90s on 2 L/m per nasal cannula. I discussed the assessment and plan of care with my nurse practitioner, Divine Coon. I attest to the above consultation as dictated by her. Time with Patient: Greater than 30
[2021-01-01] MEDS: ENOXAPARIN 40 MG/0.4 ML SYRINGE SQ SCH (14:34)
[2021-01-01] MEDS: ZINC SULFATE 220 MG CAP PO SCH (14:34)
[2021-01-01] MEDS: CHOLECALCIFEROL 25 MCG (1000 IU) TABLET PO SCH (14:35)
[2021-01-01] MEDS ORDERED: ALPRAZolam 0.25 MG TAB PO PRN (14:36)
--- NOTE | 2021-01-01 17:21 | HP ---
HISTORY AND PHYSICAL DATE OF SERVICE: 01/01/2021 CHIEF COMPLAINTS: Shortness of breath and cough. HISTORY OF PRESENT ILLNESS: This 65-year-old woman with a past medical history of nephrolithiasis, history of colonoscopy, being followed by Dr. Jackson in the outpatient setting, was having symptoms of cough and shortness of breath. The patient went to Urgent Care last week and was tested positive, but after that the patient was fatigued and the patient continued to have fever and shortness of breath. The patient was not eating and drinking. Because of multiple complications, the patient came to [facility] and was admitted for further evaluation and treatment. MCV was found to be 67.5, sodium 135, and the patient is admitted for further evaluation and treatment. The initial evaluation showed room-air pulse ox 88%, indicating acute hypoxic respiratory failure. The patient also had a CT angio of the chest. A chest x-ray which was done in the ER and personally reviewed by me showed evidence of bilateral COVID-19 pneumonia, right more than the left. A CT angio was also done which showed no evidence of pulmonary embolism, but the CT scan did show bilateral pulmonary infiltrates suggestive of COVID-19 pneumonia, again predominantly in the lower part. The patient was admitted for further evaluation and treatment. Pulmonary consultation with Dr. Turner is ongoing at this time. There is no history of any fever, rigor or chills at this time. Abnormal soft tissue attenuation in the portion of the right breast was also noted with some nodules also noted. Follow-up mammogram mass been suggested. There is no history of any fever, rigor or chills at this time. The patient is unvaccinated. PAST MEDICAL HISTORY: History of nephrolithiasis. History of colonoscopy. MEDICATIONS PRIOR TO ADMISSION: Zinc, vitamin D3, vitamin C, Fosamax. Doses are reviewed. ALLERGIES: NONE. FAMILY HISTORY: History of breast cancer in the family. SOCIAL HISTORY: No history of smoking. No history of alcohol intake. REVIEW OF SYSTEMS: ENT: No diminished hearing. No diminished vision. CARDIOVASCULAR SYSTEM: As mentioned earlier. RESPIRATORY SYSTEM: As mentioned earlier. GI: No nausea, vomiting, diarrhea. : No dysuria. NERVOUS SYSTEM: No numbness, weakness. ALLERGY/IMMUNOLOGY: No asthma or hay fever. MUSCULOSKELETAL: As mentioned earlier. HEMATOLOGY/ONCOLOGY: No history of anemia. ENDOCRINE: No history of diabetes or hypothyroidism. CONSTITUTIONAL: As mentioned earlier. DERMATOLOGY: Negative. RHEUMATOLOGY: Negative. PSYCHIATRY: As mentioned earlier. PHYSICAL EXAM: Pulse is 98, blood pressure 139/84, respiration 18, temperature 98.6, pulse ox 88% on room air. HEENT: Conjunctivae normal. Oral mucosa moist. CARDIOVASCULAR: S1, S2 muffled. RESPIRATION: Breath sounds diminished at the bases. A few scattered rhonchi. ABDOMEN: Soft, non-tender. NERVOUS SYSTEM: Moves all 4 limbs. No focal motor or sensory deficit. LYMPHATICS: No lymph node palpable in neck, axillae or groin. SKIN: No ulcer, rash, bleeding. JOINTS: No active deforming arthropathy. LABS: WBC 6.2, hemoglobin 13.4, sodium 130, potassium 3.9. ASSESSMENT: 1. Acute COVID-19 infection with acute COVID-19 bilateral interstitial pneumonia with acute hypoxic respiratory failure, present on admission. 2. Hyponatremia. 3. Microcytosis. 4. Lymphopenia. 5. Elevated AST. 6. Increased random blood sugar. 7. Abnormal densities of the breast tissue in the CT scan. 8. History of nephrolithiasis. 9. History of colonoscopy. 10.FULL CODE. RECOMMENDATIONS AND DISCUSSION: In this 65-year-old woman who presented with multiple complex medical issues, we will monitor the patient closely, continue the current medications, continue symptomatic treatment. Will initiate Lovenox and the usual medications for COVID-19, dexamethasone. The patient is probably out of the window for remdesivir. Follow the patient closely with Dr. Turner. I would also recommend a serum procalcitonin level. The prognosis is guarded because of multiple complex medical issues. Further recommendations to follow. A copy of this dictation is being forwarded to Dr. Jackson, who is the primary physician. MMODL / IJN: [id number] / ELMER
[2021-01-01] MEDS: FAMOTIDINE 20 MG TAB PO SCH (20:02)
[2021-01-02] MEDS: ALBUTEROL HFA INHALER INHALATION SCH ×4 (08:19→19:50)
[2021-01-02] MEDS: ASCORBIC ACID 500 MG TAB PO SCH (10:01)
[2021-01-02] MEDS: FAMOTIDINE 20 MG TAB PO SCH ×2 (10:01→20:18)
[2021-01-02] MEDS: dexAMETHasone 2 MG TAB PO SCH (10:01)
[2021-01-02] MEDS: ENOXAPARIN 40 MG/0.4 ML SYRINGE SQ SCH (10:01)
[2021-01-02] MEDS: CHOLECALCIFEROL 25 MCG (1000 IU) TABLET PO SCH (10:01)
[2021-01-02] MEDS: ZINC SULFATE 220 MG CAP PO SCH (10:01)
[2021-01-02] MEDS ORDERED: ONDANSETRON 4 MG/2 ML VIAL IVP PRN (10:47)
[2021-01-02 10:58] LABS: ALT 31 U/L (8-44); AST 60 U/L (13-35); Albumin 3.5 g/dL (3.8-4.9); Albumin/Globulin Ratio 1.38 (1.60-3.17); Alkaline Phosphatase 70 U/L (41-126); BUN/Creat Ratio 12.96 Ratio (12.00-20.00); Blood Urea Nitrogen 7.2 mg/dL (9.0-27.0); Calcium 8.5 mg/dL (8.7-10.3); Carbon Dioxide 22.9 mmol/L (21.6-31.8); Chloride 102 mmol/L (96-109); Globulin 2.5 g/dL (1.6-3.3); Glucose 107 mg/dL (70-110); Non-African American GFR(CKD) 97.5 (60.0-200.0); Potassium 5.2 mmol/L (3.5-5.5); Sodium 140 mmol/L (135-145); Total Bilirubin <0.20 mg/dL (0.30-1.20)
--- NOTE | 2021-01-02 11:28 | P.PN ---
Subjective This is a pleasant 65 years old female with no significant past medical history presents because of falling and respiratory symptoms. Patient says that she has been diagnosed with Covid about 10 days ago when she had fever. Gradually she was getting more weaker, more short of breath and she fell in the bathroom with the help with her she called 911 She is fully awake and oriented and she denies any chest pain or abdominal pain. She vomited once this morning. She has decreased appetite Her oxygen requirements went up today from 2 L/m To 4-5 L/m. With oxygen saturation of 92% CBC is unremarkable and ESR is normal at 17. Recent negative at 0.59. INR is normal at 0.9. BMP is unremarkable. Creatinine normal 0.6. Liver enzymes not elevated. Ohcalcitonin is normal at 0.06. Increased LDH 764 and C-reactive protein 7.0. Increased ferritin of 673. Nodular density in the left breast CTA of the chest: No pulmonary embolism. Left breast nodule and the recommended mammogram. Multifocal pneumonia. Patient currently is on vitamin C, vitamin D and zinc. She is on Lovenox 40 mg daily and dexamethasone 6 mg by mouth daily. Objective - Vital Signs Vital signs: Vital Signs Temp 98.7 F 01/02/21 09:09 Pulse 82 01/02/21 09:09 Resp 20 01/02/21 09:09 BP 147/83 01/02/21 09:09 Pulse Ox 92 L 01/02/21 10:03 Intake & Output 01/01/21 01/02/21 01/02/21 18:59 06:59 18:59 Weight 65.771 kg Other: Voiding Method Toilet Bedside Commode # Voids 1 1 - Exam GENERAL: The patient is alert and oriented x3, not in any acute distress. Well developed, well nourished. HEENT: Pupils are round and equally reacting to light. EOMI. No scleral icterus. No conjunctival pallor. Normocephalic, atraumatic. No pharyngeal erythema. No thyromegaly. CARDIOVASCULAR: S1 and S2 present. No murmurs, rubs, or gallops. -PULMONARY: Chest is clear to auscultation, no wheezing or crackles. Bilateral crepitation ABDOMEN: Soft, nontender, nondistended, normoactive bowel sounds. No palpable organomegaly. MUSCULOSKELETAL: No joint swelling or deformity. EXTREMITIES: No cyanosis, clubbing, or pedal edema. NEUROLOGICAL: Gross neurological examination did not reveal any focal deficits. SKIN: No rashes. no petechiae. - Labs CBC & Chem 7: 01/01/21 09:45 01/02/21 05:58 Labs: Abnormal Lab Results - Last 24 Hours (Table) 01/01/21 01/02/21 Range/Units 15:42 05:58 Anion Gap 14.70 H (4.00-12.00) mmol/L BUN 7.2 L (9.0-27.0) mg/dL Calcium 8.5 L (8.7-10.3) mg/dL Ferritin 673.0 H (10.0-291.0) ng/mL Total Bilirubin <0.20 L (0.30-1.20) mg/dL AST 60 H (13-35) U/L Lactate Dehydrogenase 764 H (313-618) U/L C-Reactive Protein 7.0 H (<1.0) mg/dL Total Protein 6.0 L (6.2-8.2) g/dL Albumin 3.5 L (3.8-4.9) g/dL Albumin/Globulin Ratio 1.38 L (1.60-3.17) g/dL Assessment and Plan Assessment: Acute bilateral covidpneumonia Acute hypoxic respiratory failure Increased inflammatory markers Possible acute viral gastroenteritis secondary to Covid infection Nodular density of the left breast, recommended mammogram as an outpatient Plan: This is a pleasant 65 years old female who presents with cough with pneumonia C, vitamin D and zinc Continue with dexamethasone Pulmonary consult Zofran as needed Labs and medication were reviewed.. Continue same treatment. Continue with symptomatic treatment. Resume home medication. Monitor lytes and vitals. DVT and GI prophylaxis. Further recommendationsas per clinical course of the patient DVT prophylaxis: Subcutaneous Lovenox GI Prophylaxis: Pepcid Prognosis is guarded
--- NOTE | 2021-01-02 11:50 | P.PN ---
Subjective Progress Note Date: 01/02/21 Principal diagnosis: Shortness of breath, fever and weakness This is a very pleasant 65-year-old female patient a past history of kidney stones. She presented to the emergency room earlier this morning with complaints of increasing shortness of breath, cough congestion fatigue and weakness. She was diagnosed with COVID-19 10 days ago at urgent care. She is not vaccinated. She's had a poor appetite. Fevers. Progressive shortness of breath. Some hemoptysis. Chest x-ray shows bilateral multifocal peripheral and basilar opacities left greater than right. He scan of the chest revealed multifocal pneumonia. Limited assessment for pulmonary arteries distal and secondary branches. No diagnostic evidence of pulmonary embolism. Consistent with COVID-19 infection. There were incidental findings of soft tissue attenuation in the retroareolar portion of the right breast as well as a nodular density in the lateral margin of the left breast. White count 6.4. Hemoglobin 13.4. Lymphocytes 0.9. Sodium 135. Potassium 3.9. Creatinine 0.46. He is seen today in consultation in the emergency room. She is currently sitting on the stretcher. Awake and alert in no acute distress. Initially hypoxemic at 88% on room air. Currently 98% on 2 L/m per nasal cannula. Afebrile. Hemodynamically stable. On 01/02/2021 patient seen in follow-up on medical surgical floor, yesterday patient was admitted with a diagnosis of acute hypoxic respiratory failure related to acute COVID-19 pneumonia, this morning she is on 2 L of oxygen, and her pulse ox is 83-84%, and subsequently to has been turned up to 5 L and her pulse ox came up to 90%. Clinically she is breathing comfortably, denies worsening dyspnea, no tachypnea, no use of accessory muscles of breathing. She is awake and alert, in no acute distress, resting in bed. She is coughing occasionally, not producing any phlegm, she is on Decadron 6 mg daily, prophylactic Lovenox. Physical exam reveals bibasilar crackles. No wheezing. No complaint of chest discomfort. D-dimer came back at 0.59, electrolytes were within normal limits, B1 was 7, and creatinine was 0.6, her ferritin level was 673, LDH was 764, CRP was 7, follow-up inflammatory markers are pending for today, pro-calcitonin level was negative at 0.06. No nausea vomiting or diarrhea, patient is tolerating oral intake, no loss of taste or smell. Objective - Vital Signs Vital signs: Vital Signs Temp 98.7 F 01/02/21 09:09 Pulse 82 01/02/21 09:09 Resp 20 01/02/21 09:09 BP 147/83 01/02/21 09:09 Pulse Ox 92 L 01/02/21 10:03 Intake & Output 01/01/21 01/02/21 01/02/21 18:59 06:59 18:59 Weight 65.771 kg Other: Voiding Method Toilet Bedside Commode # Voids 1 1 - Exam GENERAL EXAM: Alert, very pleasant, 65-year-old white female, on 5 L of oxygen with pulse ox of 90% comfortable in no apparent distress. HEAD: Normocephalic/atraumatic. EYES: Normal reaction of pupils, equal size. Conjunctiva pink, sclera white. NOSE: Clear with pink turbinates. THROAT: No erythema or exudates. NECK: No masses, no JVD, no thyroid enlargement, no adenopathy. CHEST: No chest wall deformity. Symmetrical expansion. LUNGS: Equal air entry with basilar rales CVS: Regular rate and rhythm, normal S1 and S2, no gallops, no murmurs, no rubs ABDOMEN: Soft, nontender. No hepatosplenomegaly, normal bowel sounds, no guarding or rigidity. EXTREMITIES: No clubbing, no edema, no cyanosis, 2+ pulses and upper and lower extremities. MUSCULOSKELETAL: Muscle strength and tone normal. SPINE: No scoliosis or deformity SKIN: No rashes CENTRAL NERVOUS SYSTEM: Alert and oriented -3. No focal deficits, tone is normal in all 4 extremities. PSYCHIATRIC: Alert and oriented -3. Appropriate affect. Intact judgment and insight. - Labs CBC & Chem 7: 01/01/21 09:45 01/02/21 05:58 Labs: Abnormal Lab Results - Last 24 Hours (Table) 01/01/21 01/02/21 Range/Units 15:42 05:58 Anion Gap 14.70 H (4.00-12.00) mmol/L BUN 7.2 L (9.0-27.0) mg/dL Calcium 8.5 L (8.7-10.3) mg/dL Ferritin 673.0 H (10.0-291.0) ng/mL Total Bilirubin <0.20 L (0.30-1.20) mg/dL AST 60 H (13-35) U/L Lactate Dehydrogenase 764 H (313-618) U/L C-Reactive Protein 7.0 H (<1.0) mg/dL Total Protein 6.0 L (6.2-8.2) g/dL Albumin 3.5 L (3.8-4.9) g/dL Albumin/Globulin Ratio 1.38 L (1.60-3.17) g/dL Assessment and Plan Plan: Assessment: #1. Acute hypoxic respiratory failure related to acute COVID-19 pneumonia. Patient was outside the window for Remdesivir, she was diagnosed with COVID-19 10 days prior at an urgent care facility. Patient is not vaccinated against COVID-19. Clinically on supportive treatment with steroids, prophylactic anti-coagulation and vitamins #2. Increased inflammatory markers related to the above #3. Mild hyponatremia, improved with IV hydration #4. Abnormal densities of the breast tissue on the computed tomography scan of the chest, will need follow-up #5. History of nephrolithiasis Plan: Continue current medical treatment FiO2 is up to 5 L Continue titrating FiO2 to keep O2 saturation at 90% and above Continue current dose Decadron and Lovenox No CT evidence of pulmonary embolism We'll follow inflammatory markers and d-dimer We'll monitor for worsening dyspnea and hypoxia I performed a history & physical examination of the patient and discussed their management with my nurse practitioner, Verónica Santana. I reviewed the nurse practitioner's note and agree with the documented findings and plan of care. Lung sounds are positive for dim breath sounds throughout the lung mo. The findings and the impression was discussed with the patient. I attest to the documentation by the nurse practitioner. Time with Patient: Less than 30
[2021-01-02 12:00] LABS: Basophils # (A) 0.01 X 10*3/uL (0.00-0.10); Basophils % (A) 0.1 %; Eosinophils # (A) 0 X 10*3/uL (0.04-0.35); Eosinophils % (A) 0 %; HCT 41.6 % (37.2-46.3); HGB 12.6 g/dL (12.0-15.0); Lymphocytes # (A) 1.83 X 10*3/uL (0.90-5.00); Lymphocytes % (A) 20.9 %; MCHC 30.3 g/dL (32.0-37.0); MCV 65.9 fL (80.0-97.0); Monocytes # (A) 0.81 X 10*3/uL (0.20-1.00); Monocytes % (A) 9.3 %; Neutrophils # (A) 6.04 X 10*3/uL (1.80-7.70); Neutrophils % (A) 69.1 %; Platelet Count 265 X 10*3/uL (140-440); RBC 6.31 X 10*6/uL (4.10-5.20); RDW 16.8 % (11.5-14.5); WBC 8.74 X 10*3/uL (4.50-10.00)
[2021-01-02 12:01] LABS: Microcytosis (M) 2+
[2021-01-02] MEDS: ACETAMINOPHEN TAB 500 MG TAB PO PRN (16:31)
[2021-01-02] MEDS: IBUPROFEN 400 MG TAB PO PRN (21:23)
[2021-01-03] MEDS: ALBUTEROL HFA INHALER INHALATION SCH ×4 (09:19→20:52)
[2021-01-03] MEDS: dexAMETHasone 2 MG TAB PO SCH (10:05)
[2021-01-03] MEDS: CHOLECALCIFEROL 25 MCG (1000 IU) TABLET PO SCH (10:05)
[2021-01-03] MEDS: ENOXAPARIN 40 MG/0.4 ML SYRINGE SQ SCH (10:05)
[2021-01-03] MEDS: ASCORBIC ACID 500 MG TAB PO SCH (10:05)
[2021-01-03] MEDS: FAMOTIDINE 20 MG TAB PO SCH ×2 (10:06→20:14)
[2021-01-03] MEDS: ZINC SULFATE 220 MG CAP PO SCH (10:06)
--- NOTE | 2021-01-03 11:24 | P.PN ---
Subjective This is a pleasant 65 years old female with no significant past medical history presents because of falling and respiratory symptoms. Patient says that she has been diagnosed with Covid about 10 days ago when she had fever. Gradually she was getting more weaker, more short of breath and she fell in the bathroom with the help with her she called 911 She is fully awake and oriented and she denies any chest pain or abdominal pain. She vomited once this morning. She has decreased appetite Her oxygen requirements went up today from 2 L/m To 4-5 L/m. With oxygen saturation of 92% CBC is unremarkable and ESR is normal at 17. Recent negative at 0.59. INR is normal at 0.9. BMP is unremarkable. Creatinine normal 0.6. Liver enzymes not elevated. Ohcalcitonin is normal at 0.06. Increased LDH 764 and C-reactive protein 7.0. Increased ferritin of 673. Nodular density in the left breast CTA of the chest: No pulmonary embolism. Left breast nodule and the recommended mammogram. Multifocal pneumonia. Patient currently is on vitamin C, vitamin D and zinc. She is on Lovenox 40 mg daily and dexamethasone 6 mg by mouth daily. 01/03/2021 Patient is awake and alert, still tachypneic especially after exertion and after she had a shower this morning. However oxygen requirement is the same since yesterday at 4 L/m. No chest pain. No diarrhea. No other new complaints. However she is coughing vigorously and Robitussin is added. She is afebrile and rest of vitals are stable. D-dimer is negative this morning at 0.47. Rest of labs and inflammatory markers are pending. Decreased stool on dexamethasone, vitamin C, vitamin D and zinc. Also she is on Lovenox and Pepcid Objective - Vital Signs Vital signs: Vital Signs Temp 98.0 F 01/03/21 10:00 Pulse 100 01/03/21 10:00 Resp 18 01/03/21 10:00 BP 117/76 01/03/21 10:00 Pulse Ox 95 01/03/21 10:00 Intake & Output 01/02/21 01/03/21 01/03/21 18:59 06:59 18:59 Other: Voiding Method Toilet Bedside Commode # Voids 1 1 - Exam GENERAL: The patient is alert and oriented x3, not in any acute distress. Well developed, well nourished. HEENT: Pupils are round and equally reacting to light. EOMI. No scleral icterus. No conjunctival pallor. Normocephalic, atraumatic. No pharyngeal erythema. No thyromegaly. CARDIOVASCULAR: S1 and S2 present. No murmurs, rubs, or gallops. -PULMONARY: Chest is clear to auscultation, no wheezing or crackles. Bilateral crepitation ABDOMEN: Soft, nontender, nondistended, normoactive bowel sounds. No palpable organomegaly. MUSCULOSKELETAL: No joint swelling or deformity. EXTREMITIES: No cyanosis, clubbing, or pedal edema. NEUROLOGICAL: Gross neurological examination did not reveal any focal deficits. SKIN: No rashes. no petechiae. - Labs CBC & Chem 7: 01/02/21 05:58 01/02/21 05:58 Labs: Abnormal Lab Results - Last 24 Hours (Table) 01/02/21 Range/Units 05:58 RBC 6.31 H (4.10-5.20) X 10*6/uL MCV 65.9 L (80.0-97.0) fL MCH 20.0 L (27.0-32.0) pg MCHC 30.3 L (32.0-37.0) g/dL RDW 16.8 H (11.5-14.5) % Immature Gran # 0.05 H (0.00-0.04) X 10*3/uL Eosinophils # 0 L (0.04-0.35) X 10*3/uL Assessment and Plan Assessment: Acute bilateral covidpneumonia Acute hypoxic respiratory failure Increased inflammatory markers Possible acute viral gastroenteritis secondary to Covid infection Nodular density of the left breast, recommended mammogram as an outpatient Plan: This is a pleasant 65 years old female who presents with cough with pneumonia Continue with vitamin C, vitamin D and zinc Continue with dexamethasone Pulmonary consult Zofran as needed Labs and medication were reviewed.. Continue same treatment. Continue with symptomatic treatment. Resume home medication. Monitor lytes and vitals. DVT and GI prophylaxis. Further recommendationsas per clinical course of the patient DVT prophylaxis: Subcutaneous Lovenox GI Prophylaxis: Pepcid Prognosis is guarded
--- NOTE | 2021-01-03 12:49 | P.PN ---
Subjective Progress Note Date: 01/03/21 Principal diagnosis: Shortness of breath, fever and weakness This is a very pleasant 65-year-old female patient a past history of kidney stones. She presented to the emergency room earlier this morning with complaints of increasing shortness of breath, cough congestion fatigue and weakness. She was diagnosed with COVID-19 10 days ago at urgent care. She is not vaccinated. She's had a poor appetite. Fevers. Progressive shortness of breath. Some hemoptysis. Chest x-ray shows bilateral multifocal peripheral and basilar opacities left greater than right. He scan of the chest revealed multifocal pneumonia. Limited assessment for pulmonary arteries distal and secondary branches. No diagnostic evidence of pulmonary embolism. Consistent with COVID-19 infection. There were incidental findings of soft tissue attenuation in the retroareolar portion of the right breast as well as a nodular density in the lateral margin of the left breast. White count 6.4. Hemoglobin 13.4. Lymphocytes 0.9. Sodium 135. Potassium 3.9. Creatinine 0.46. He is seen today in consultation in the emergency room. She is currently sitting on the stretcher. Awake and alert in no acute distress. Initially hypoxemic at 88% on room air. Currently 98% on 2 L/m per nasal cannula. Afebrile. Hemodynamically stable. On 01/02/2021 patient seen in follow-up on medical surgical floor, yesterday patient was admitted with a diagnosis of acute hypoxic respiratory failure related to acute COVID-19 pneumonia, this morning she is on 2 L of oxygen, and her pulse ox is 83-84%, and subsequently to has been turned up to 5 L and her pulse ox came up to 90%. Clinically she is breathing comfortably, denies worsening dyspnea, no tachypnea, no use of accessory muscles of breathing. She is awake and alert, in no acute distress, resting in bed. She is coughing occasionally, not producing any phlegm, she is on Decadron 6 mg daily, prophylactic Lovenox. Physical exam reveals bibasilar crackles. No wheezing. No complaint of chest discomfort. D-dimer came back at 0.59, electrolytes were within normal limits, B1 was 7, and creatinine was 0.6, her ferritin level was 673, LDH was 764, CRP was 7, follow-up inflammatory markers are pending for today, pro-calcitonin level was negative at 0.06. No nausea vomiting or diarrhea, patient is tolerating oral intake, no loss of taste or smell. On 01/03/2001 patient seen in follow-up on medical surgical floor, she is resting comfortably in bed, still coughing, but no chest discomfort, vital signs have been stable, she is on 4 L of oxygen pulse ox is 95-97%, no worsening dyspnea, he said no acute events overnight, no complaints of chest discomfort, no fever or chills, she remains on Decadron 6 mg daily, Lovenox, she is on Robitussin-DM for the cough, and a COVID-19 vitamins. Today's labs have been reviewed, d-dimer remains normal at 0.47, and inflammatory markers are still pending for today. Objective - Vital Signs Vital signs: Vital Signs Temp 98.0 F 01/03/21 10:00 Pulse 100 01/03/21 10:00 Resp 18 01/03/21 10:00 BP 117/76 01/03/21 10:00 Pulse Ox 95 01/03/21 10:00 Intake & Output 01/02/21 01/03/21 01/03/21 18:59 06:59 18:59 Other: Voiding Method Toilet Bedside Commode # Voids 1 1 - Exam GENERAL EXAM: Alert, very pleasant, 65-year-old white female, on 4 L of oxygen with pulse ox of 95% comfortable in no apparent distress. HEAD: Normocephalic/atraumatic. EYES: Normal reaction of pupils, equal size. Conjunctiva pink, sclera white. NOSE: Clear with pink turbinates. THROAT: No erythema or exudates. NECK: No masses, no JVD, no thyroid enlargement, no adenopathy. CHEST: No chest wall deformity. Symmetrical expansion. LUNGS: Equal air entry with basilar rales CVS: Regular rate and rhythm, normal S1 and S2, no gallops, no murmurs, no rubs ABDOMEN: Soft, nontender. No hepatosplenomegaly, normal bowel sounds, no guarding or rigidity. EXTREMITIES: No clubbing, no edema, no cyanosis, 2+ pulses and upper and lower extremities. MUSCULOSKELETAL: Muscle strength and tone normal. SPINE: No scoliosis or deformity SKIN: No rashes CENTRAL NERVOUS SYSTEM: Alert and oriented -3. No focal deficits, tone is normal in all 4 extremities. PSYCHIATRIC: Alert and oriented -3. Appropriate affect. Intact judgment and insight. - Labs CBC & Chem 7: 01/02/21 05:58 01/02/21 05:58 Assessment and Plan Plan: Assessment: #1. Acute hypoxic respiratory failure related to acute COVID-19 pneumonia. Patient was outside the window for Remdesivir, she was diagnosed with COVID-19 10 days prior at an urgent care facility. Patient is not vaccinated against COVID-19. Clinically on supportive treatment with steroids, prophylactic anti- coagulation and vitamins #2. Increased inflammatory markers related to the above #3. Mild hyponatremia, improved with IV hydration #4. Abnormal densities of the breast tissue on the computed tomography scan of the chest, will need follow-up #5. History of nephrolithiasis Plan: Continue current medical treatment FiO2 is stable at 4 L Weaning FiO2 to keep O2 sats is at or above 90% Continue current dose Decadron and Lovenox Incentive spirometer, encouraged patient to sit up in the chair, reposition self in bed, self prone We'll monitor for worsening dyspnea and hypoxia Continue to follow clinical course I performed a history & physical examination of the patient and discussed their management with my nurse practitioner, Verónica Santana. I reviewed the nurse practitioner's note and agree with the documented findings and plan of care. Lung sounds are positive for dim breath sounds throughout the lung mo. The findings and the impression was discussed with the patient. I attest to the documentation by the nurse practitioner. Time with Patient: Less than 30
[2021-01-03 13:11] LABS: African American GFR (CKD) 109.9 (60.0-200.0); Anion Gap 13.6 mmol/L (4.00-12.00); BUN/Creat Ratio 16.58 Ratio (12.00-20.00); C Reactive Protein 6.8 mg/dL (0.00-0.80); Carbon Dioxide 27.7 mmol/L (21.6-31.8); Non-African American GFR(CKD) 94.8 (60.0-200.0); Potassium 4.4 mmol/L (3.5-5.5)
[2021-01-03] MEDS: guaiFENesin-DM 100-10MG/5ML 10 ML CUP PO SCH ×4 (13:30→23:56)
[2021-01-03] MEDS: ACETAMINOPHEN TAB 500 MG TAB PO PRN (18:20)
[2021-01-04] MEDS: IBUPROFEN 400 MG TAB PO PRN (03:06)
[2021-01-04] MEDS: guaiFENesin-DM 100-10MG/5ML 10 ML CUP PO SCH ×2 (05:56→12:00)
[2021-01-04] MEDS: ALBUTEROL HFA INHALER INHALATION SCH ×3 (08:24→16:10)
[2021-01-04] MEDS: FAMOTIDINE 20 MG TAB PO SCH (09:19)
[2021-01-04] MEDS: ENOXAPARIN 40 MG/0.4 ML SYRINGE SQ SCH (09:19)
[2021-01-04] MEDS: ASCORBIC ACID 500 MG TAB PO SCH (09:19)
[2021-01-04] MEDS: dexAMETHasone 2 MG TAB PO SCH (09:20)
[2021-01-04] MEDS: CHOLECALCIFEROL 25 MCG (1000 IU) TABLET PO SCH (09:20)
[2021-01-04] MEDS: ZINC SULFATE 220 MG CAP PO SCH (09:20)
--- NOTE | 2021-01-04 11:11 | P.PN ---
Subjective Progress Note Date: 01/04/21 Principal diagnosis: Shortness of breath, fever and weakness This is a very pleasant 65-year-old female patient a past history of kidney stones. She presented to the emergency room earlier this morning with complaints of increasing shortness of breath, cough congestion fatigue and weakness. She was diagnosed with COVID-19 10 days ago at urgent care. She is not vaccinated. She's had a poor appetite. Fevers. Progressive shortness of breath. Some hemoptysis. Chest x-ray shows bilateral multifocal peripheral and basilar opacities left greater than right. He scan of the chest revealed multifocal pneumonia. Limited assessment for pulmonary arteries distal and secondary branches. No diagnostic evidence of pulmonary embolism. Consistent with COVID-19 infection. There were incidental findings of soft tissue attenuation in the retroareolar portion of the right breast as well as a nodular density in the lateral margin of the left breast. White count 6.4. Hemoglobin 13.4. Lymphocytes 0.9. Sodium 135. Potassium 3.9. Creatinine 0.46. He is seen today in consultation in the emergency room. She is currently sitting on the stretcher. Awake and alert in no acute distress. Initially hypoxemic at 88% on room air. Currently 98% on 2 L/m per nasal cannula. Afebrile. Hemodynamically stable. On 01/02/2021 patient seen in follow-up on medical surgical floor, yesterday patient was admitted with a diagnosis of acute hypoxic respiratory failure related to acute COVID-19 pneumonia, this morning she is on 2 L of oxygen, and her pulse ox is 83-84%, and subsequently to has been turned up to 5 L and her pulse ox came up to 90%. Clinically she is breathing comfortably, denies worsening dyspnea, no tachypnea, no use of accessory muscles of breathing. She is awake and alert, in no acute distress, resting in bed. She is coughing occasionally, not producing any phlegm, she is on Decadron 6 mg daily, prophylactic Lovenox. Physical exam reveals bibasilar crackles. No wheezing. No complaint of chest discomfort. D-dimer came back at 0.59, electrolytes were within normal limits, B1 was 7, and creatinine was 0.6, her ferritin level was 673, LDH was 764, CRP was 7, follow-up inflammatory markers are pending for today, pro-calcitonin level was negative at 0.06. No nausea vomiting or diarrhea, patient is tolerating oral intake, no loss of taste or smell. On 01/03/2001 patient seen in follow-up on medical surgical floor, she is resting comfortably in bed, still coughing, but no chest discomfort, vital signs have been stable, she is on 4 L of oxygen pulse ox is 95-97%, no worsening dyspnea, he said no acute events overnight, no complaints of chest discomfort, no fever or chills, she remains on Decadron 6 mg daily, Lovenox, she is on Robitussin-DM for the cough, and a COVID-19 vitamins. Today's labs have been reviewed, d-dimer remains normal at 0.47, and inflammatory markers are still pending for today. On 01/04/2021 patient seen in follow-up on medical surgical floor. She is resting comfortably in bed, she states she still very winded with exertion, and overall fatigueed and takes her a while to recover her energy even after walking to the bathroom. She is 3 L of oxygen pulse ox is 94%, no fever or chills, lung sounds reveal diffuse coarse crackles bilaterally. Today chest discomfort, she still has the dry cough, no phlegm production. Remains on Decadron 6 mg daily, she remains on COVID-19 vitamins and prophylactic lovenox Objective - Vital Signs Vital signs: Vital Signs Temp 97.7 F 01/04/21 10:00 Pulse 72 01/04/21 10:00 Resp 17 01/04/21 10:00 BP 127/83 01/04/21 10:00 Pulse Ox 94 L 01/04/21 10:00 Intake & Output 01/03/21 01/04/21 01/04/21 18:59 06:59 18:59 Other: # Voids 3 - Exam GENERAL EXAM: Alert, very pleasant, 65-year-old white female, on 3 L of oxygen with pulse ox of 94% comfortable in no apparent distress. HEAD: Normocephalic/atraumatic. EYES: Normal reaction of pupils, equal size. Conjunctiva pink, sclera white. NOSE: Clear with pink turbinates. THROAT: No erythema or exudates. NECK: No masses, no JVD, no thyroid enlargement, no adenopathy. CHEST: No chest wall deformity. Symmetrical expansion. LUNGS: Equal air entry with basilar rales CVS: Regular rate and rhythm, normal S1 and S2, no gallops, no murmurs, no rubs ABDOMEN: Soft, nontender. No hepatosplenomegaly, normal bowel sounds, no guarding or rigidity. EXTREMITIES: No clubbing, no edema, no cyanosis, 2+ pulses and upper and lower extremities. MUSCULOSKELETAL: Muscle strength and tone normal. SPINE: No scoliosis or deformity SKIN: No rashes CENTRAL NERVOUS SYSTEM: Alert and oriented -3. No focal deficits, tone is normal in all 4 extremities. PSYCHIATRIC: Alert and oriented -3. Appropriate affect. Intact judgment and insight. - Labs CBC & Chem 7: 01/02/21 05:58 01/03/21 05:50 Labs: Abnormal Lab Results - Last 24 Hours (Table) 01/03/21 Range/Units 05:50 Anion Gap 13.60 H (4.00-12.00) mmol/L Glucose 112 H (70-110) mg/dL Lactate Dehydrogenase 326 H (120-246) U/L C-Reactive Protein 6.80 H (0.00-0.80) mg/dL Assessment and Plan Plan: Assessment: #1. Acute hypoxic respiratory failure related to acute COVID-19 pneumonia. Patient was outside the window for Remdesivir, she was diagnosed with COVID-19 10 days prior at an urgent care facility. Patient is not vaccinated against COVID-19. Clinically on supportive treatment with steroids, prophylactic anti- coagulation and vitamins #2. Increased inflammatory markers related to the above #3. Mild hyponatremia, improved with IV hydration #4. Abnormal densities of the breast tissue on the computed tomography scan of the chest, will need follow-up #5. History of nephrolithiasis Plan: Vital signs have been stable FiO2 is currently down to 3 L, patient is maintaining O2 saturations above 90% Does have exertional dyspnea, but overall her dyspnea has not worsened since [place] Vital signs are stable From pulmonary perspective she is stable for discharge home today, obtain home oxygen assessment, most likely patient will qualify for home oxygen She can finish outpatient course of oral Decadron for total of 10 days, and continue on multivitamins including vitamin D, C and zinc Outpatient follow-up with Dr. Brewer in the office in 2 weeks I performed a history & physical examination of the patient and discussed their management with my nurse practitioner, Verónica Santana. I reviewed the nurse practitioner's note and agree with the documented findings and plan of care. Lung sounds are positive for dim breath sounds throughout the lung mo. The findings and the impression was discussed with the patient. I attest to the documentation by the nurse practitioner. Time with Patient: Less than 30
[2021-01-04 13:56] VITALS: BP 124/84; PULSE 85; RESP 16; TEMP 97.2
--- NOTE | 2021-01-05 01:18 | P.DS ---
Providers Date of admission: 01/01/21 10:55 Attending physician: Consuelo Ellis Consults: 01/01/21 10:55 Consult Physician Urgent Consulting Provider: Pepe Turner Consult Reason/Comments: COVID pneumonia Do you want consulting provider notified?: Yes Primary care physician: Lynnette Jackson [facility] Course: Date of service: 01/04/2021 Diagnoses: Acute bilateral covidpneumonia Acute hypoxic respiratory failure Increased inflammatory markers Possible acute viral gastroenteritis secondary to Covid infection Nodular density of the left breast, recommended mammogram as an outpatient Hospital course: This is a pleasant 65 years old female with no significant past medical history presents because of falling and respiratory symptoms. Patient says that she has been diagnosed with Covid about 10 days earlier to admission when she had fever. Gradually she was getting more weaker, more short of breath and she fell in the bathroom with the help with her she called 911. Patient was found to have bilateral Covid pneumonia and mild acute hypoxic respiratory failure By pulmonary team were following her closely. Patient was treated with dexamethasone, vitamin C, vitamin D and zinc as well as Pepcid and Lovenox. Patient showed Overall improvement And on the day of discharge she was saturating 96% and a 3 L oxygen via nasal cannula. She still feels generally weak which is expected from her viral infection, she is able to walk to the bathroom. She denies chest pain or vomiting. She tolerates diet. No diarrhea. No more fever. She will require home oxygen upon discharge Good for discharge by pulmonary team today Problems and management plan were discussed with the patient and he verbalized understanding and acceptance Patient was found stable and can be discharged home however he needs follow-up as an outpatient. Patient was instructed to follow up with PCP Dr. Jackson within one week and patient agrees with the appointments made for her on 01/07. Also patient was instructed to follow up with Dr. Brewer in 2-3 weeks and she agrees to call and make appointment Physical exam Gen: patient is a AAOx3, no distress CVS: S1-S2, RRR, no murmur Lungs: B/L CTA, no wheezing Abdomen: soft, no distention, no tenderness, positive bowel sounds Extremity: no leg edema or induration Time spent more than 35 minutes Plan - Discharge Summary Discharge Rx Participant: No New Discharge Prescriptions: New Dexamethasone [Decadron] 6 mg PO DAILY 7 Days #7 tablet Zinc Sulfate [Orazinc] 220 mg PO DAILY #30 cap Famotidine [Pepcid] 20 mg PO BID #60 tab guaiFENesin-DM 100-10MG/5ML [Robitussin DM] 10 ml PO Q6HR #60 ml Albuterol Inhaler [Ventolin Hfa Inhaler] 2 puff INHALATION RT-QID #1 inh Ascorbic Acid [Vitamin C] 1,000 mg PO DAILY #60 tab Acetaminophen Tab [Tylenol] 500 mg PO Q6HR PRN tab PRN Reason: Fever And/ Or Pain Continue Alendronate Sodium [Fosamax] 70 mg PO FR Cholecalciferol (Vitamin D3) [Vitamin D3 (3000 Iu)] 75 mcg PO DAILY #30 tab Discontinued Zinc Gluconate [Zinc] 50 mg PO DAILY Ascorbic Acid [Vitamin C] 500 mg PO DAILY Discharge Medication List Alendronate Sodium [Fosamax] 70 mg PO FR 01/01/21 [History] Acetaminophen Tab [Tylenol] 500 mg PO Q6HR PRN tab 01/04/21 [Rx] Albuterol Inhaler [Ventolin Hfa Inhaler] 2 puff INHALATION RT-QID #1 inh 01/04/21 [Rx] Ascorbic Acid [Vitamin C] 1,000 mg PO DAILY #60 tab 01/04/21 [Rx] Cholecalciferol (Vitamin D3) [Vitamin D3 (3000 Iu)] 75 mcg PO DAILY #30 tab 01/04/21 [Rx] Dexamethasone [Decadron] 6 mg PO DAILY 7 Days #7 tablet 01/04/21 [Rx] Famotidine [Pepcid] 20 mg PO BID #60 tab 01/04/21 [Rx] Zinc Sulfate [Orazinc] 220 mg PO DAILY #30 cap 01/04/21 [Rx] guaiFENesin-DM 100-10MG/5ML [Robitussin DM] 10 ml PO Q6HR #60 ml 01/04/21 [Rx] Follow up Appointment(s)/Referral(s): Pepe Turner MD [STAFF PHYSICIAN] - 01/28/21 2:15 pm Lynnette Jackson MD [Primary Care Provider] - 01/07/21 5:45 pm [facility] [NON-STAFF] - As Needed (oxygen ) [facility], [NON-STAFF] - As Needed Patient Instructions/Handouts: Coronavirus Disease 2019 (COVID-19) Activity/Diet/Wound Care/Special Instructions: Heart healthy diet Activity is restricted till you see your doctor Discharge Disposition: HOME WITH HOME HEALTH SERVICES
== END 2021-01-04 16:55 | disposition home health service (06) | DRG 177 ==
LOC: EC 08:58 → 1SOBS 10:55 → 4SSUR 14:53
PROVIDERS: ADMIT Hospitalist; ATTEND Hospitalist
DX: U07.1 COVID-19 (principal); J12.82 Pneumonia due to coronavirus disease 2019; J96.01 Acute respiratory failure with hypoxia; E87.1 Hypo-osmolality and hyponatremia; N63.10 Unspecified lump in the right breast, unspecified quadrant; D72.810 Lymphocytopenia; Z79.01 Long term (current) use of anticoagulants; Z79.83 Long term (current) use of bisphosphonates; Z80.3 Family history of malignant neoplasm of breast; Z82.49 Family history of ischemic heart disease and other diseases of the circulatory system; Z83.3 Family history of diabetes mellitus; Z87.442 Personal history of urinary calculi; A08.4 Viral intestinal infection, unspecified; N63.20 Unspecified lump in the left breast, unspecified quadrant; Z98.890 Other specified postprocedural states
CPT/HCPCS: 36415; 71046; 71275; 80048; 80053; 82728; 83605; 83615; 84145; 84484; 85025; 85379; 85610; 85652; 85730; 86140; 93005; 94640; 96361; 96374; 99285

== ENCOUNTER → 2021-01-30 | Outpatient (CLI) | payer MEDICARE, OTHER ==
--- NOTE | 2021-01-30 08:43 | MM ---
Reason for exam: follow-up at short interval from prior study. Last mammogram was performed 6 months ago. History: Patient is postmenopausal. Family history of breast cancer in sister at age 54. Benign core biopsy of the left breast, 2004. Physical Findings: Nurse did not find any significant physical abnormalities on exam. MG 3D Diag Mammo W/Cad ERON Bilateral CC and MLO view(s) were taken. Prior study comparison: August 10, 2020, bilateral MG 3d screening mammo w/cad. January 31, 2020, left breast MG 3d diag mammo w/cad LT. The breast tissue is heterogeneously dense. This may lower the sensitivity of mammography. Previous mammotome biopsy in the left breast. There is chronic nodularity in the left breast, stable. These results were verbally communicated with the patient and result sheet given to the patient on 01/30/21. ASSESSMENT: Probably benign, BI-RAD 3 RECOMMENDATION: Follow-up diagnostic mammogram of both breasts in 6 months.
== END | disposition home or self-care (01) ==
LOC: RADMAMWWP 07:17
PROVIDERS: ATTEND Family Medicine
DX: N64.89 Other specified disorders of breast (principal); R92.2 Inconclusive mammogram; Z80.3 Family history of malignant neoplasm of breast; Z78.0 Asymptomatic menopausal state
CPT/HCPCS: 77066; G0279; 77062

== ENCOUNTER → 2021-03-13 | Outpatient (CLI) | payer MEDICARE, OTHER ==
[2021-03-13 10:31] LABS: ALT 27 U/L (8-44); AST 21 U/L (13-35); Albumin 4.4 g/dL (3.8-4.9); Albumin/Globulin Ratio 1.83 (1.60-3.17); Alkaline Phosphatase 75 U/L (41-126); Bilirubin, Conjugated <0.20 mg/dL (0.20-0.40); Chol/HDL Ratio 3.37 Ratio; Globulin 2.4 g/dL (1.6-3.3); LDL Cholesterol,Calculated 182.5 mg/dL (0.0-131.0); Total Protein 6.8 g/dL (6.2-8.2)
== END | disposition home or self-care (01) ==
LOC: LABWHC1 07:11
PROVIDERS: ATTEND Internal Medicine Interventional Cardiology
DX: E78.2 Mixed hyperlipidemia (principal)
CPT/HCPCS: 36415; 80061; 80076

== ENCOUNTER → 2021-03-22 | Outpatient (CLI) | payer MEDICARE, OTHER ==
--- NOTE | 2021-03-22 10:00 | ECHOF ---
Referral Reason:R07.9 MEASUREMENTS -------- HEIGHT: 157.5 cm WEIGHT: 64.4 kg BP: RVIDd: 2.9 cm (< 3.3) IVSd: 0.9 cm (0.6 - 1.1) LVIDd: 3.8 cm (3.9 - 5.3) LVPWd: 1.1 cm (0.6 - 1.1) IVSs: 1.7 cm LVIDs: 2.0 cm LVPWs: 2.0 cm Ao Diam: 3.1 cm (2.0 - 3.7) AV Cusp: 2.2 cm (1.5 - 2.6) LA Diam: 3.2 cm (2.7 - 3.8) MV EXCURSION: 11.800 mm (> 18.000) MV EF SLOPE: 54 mm/s (70 - 150) EPSS: 0.3 cm MV E Padilla: 0.80 m/s MV DecT: 157 ms MV A Padilla: 0.79 m/s MV E/A Ratio: 1.02 FINDINGS -------- This was a technically adequate study. The left ventricular size is normal. Left ventricular wall thickness is normal. Overall left vent ricular systolic function is normal with, an EF between 55 - 60 %. The right ventricle is normal in size. The left atrial size is normal. The right atrial size is normal. The aortic valve is trileaflet and appears structurally normal. The mitral valve is normal. There is trace mitral regurgitation. The tricuspid valve appears structurally normal. Trace tricuspid regurgitation present. Right maddie tricular systolic pressure is normal at < 35 mmHg. There is no pulmonic regurgitation present. The aortic root size is normal. Normal inferior vena cava with normal inspiratory collapse consistent with estimated right atrial pre ssure of 5 mmHg. There is no pericardial effusion. CONCLUSIONS -------- 1. The left ventricular size is normal. 2. Left ventricular wall thickness is normal. 3. Overall left ventricular systolic function is normal with, an EF between 55 - 60 %. 4. The aortic valve is trileaflet and appears structurally normal. 5. There is trace mitral regurgitation. 6. Trace tricuspid regurgitation present. 7. There is no pericardial effusion. BUS STEWARD: Lauren Hampton RDCS
--- NOTE | 2021-03-22 13:58 | ECHOS ---
STRESS ECHOCARDIOGRAM INDICATIONS: Shortness of breath/tachycardia BASELINE HEART RATE: 72 BASELINE BLOOD PRESSURE: 125/79 MAXIMUM HEART RATE: 172 MAXIMUM BLOOD PRESSURE: 161.74 85% MPHR: 131 100% MPHR: 154 METS: 10.3 MAXIMUM STAGE REACHED: 3 TOTAL EXERCISE TIME: 9:15 CLINICAL INFORMATION: Baseline EKG shows sinus rhythm, normal axis, normal intervals. Patient exercised on Abhinav protocol for a total of 9 minutes, achieving 10 METS, 85% of predicted maximal heart rate, without chest pain or diagnostic ST-segment depression. Baseline echo shows normal left ventricular size, wall motion and systolic function. Post exercise there is normal hyperdynamic response of all segments of myocardium noted. CONCLUSIONS: 1. Good exercise tolerance. 2. Negative stress test by EKG criteria. 3. Negative stress echo. MMODL / IJN: [id number] /
== END | disposition home or self-care (01) ==
LOC: RADECHMAIN 08:24
PROVIDERS: ATTEND Internal Medicine Interventional Cardiology
DX: I08.1 Rheumatic disorders of both mitral and tricuspid valves (principal); E78.2 Mixed hyperlipidemia; I25.10 Atherosclerotic heart disease of native coronary artery without angina pectoris; I25.84 Coronary atherosclerosis due to calcified coronary lesion
CPT/HCPCS: 93306; 93351

== ENCOUNTER → 2021-05-15 | Outpatient (CLI) | payer MEDICARE, OTHER ==
[2021-05-15 20:35] LABS: LDL Cholesterol,Calculated 184.1 mg/dL (0.0-131.0); VLDL Calculation 13.86 mg/dL (5.00-40.00)
== END | disposition home or self-care (01) ==
LOC: LABWHC1 11:27
PROVIDERS: ATTEND Family Medicine
DX: E78.5 Hyperlipidemia, unspecified (principal)
CPT/HCPCS: 36415; 80061

== ENCOUNTER → 2021-08-07 | Outpatient (CLI) | payer MEDICARE, OTHER ==
--- NOTE | 2021-08-07 07:37 | MM ---
Reason for Exam: Hx of benign breast biopsy. Last screening mammogram was performed 6 month(s) ago. Patient History: Menarche at age 11. First Full-Term at age 25. Postmenopausal. Patient has history of breast feeding. 2004, Benign Core Biopsy on the left side. Sister had breast cancer, age 54. Risk Values: Stephania 5 year model risk: 3.9%. NCI Lifetime model risk: 13.5%. Tissue Density: The breast tissue is heterogeneously dense. This may lower the sensitivity of mammography. Findings: Analyzed By CAD. No suspicious calcifications evident. Stable mass left breast. No evidence for distortion or new mass. Overall Assessment: Benign, BI-RAD 2 Management: Screening Mammogram of both breasts in 1 year. A clinical breast exam by your physician is recommended on an annual basis and results should be correlated with mammographic findings. This exam should not preclude additional follow-up of suspicious palpable abnormalities. Results were given to the patient verbally at the time of exam. Electronically signed and approved by: Lopez Odell M.D. Radiologis
--- NOTE | 2021-08-07 08:00 | US ---
EXAMINATION TYPE: US abdomen limited DATE OF EXAM: 08/07/2021 COMPARISON: CT CLINICAL HISTORY: R1900 INTRA ABD AND PELVIC SWELLING MASS/LUMP. Pt states LUQ swelling/ pt states hi story of left kidney renal stone removal as a teenager EXAM MEASUREMENTS: Spleen: 7.7 cm Left Kidney: 10.0 x 5.3 x 5.1 cm 1. Spleen: wnl 2. Left Kidney: Cystic area mid/lateral portion of left kidney, no evidence of hydro IMPRESSION: Cyst left kidney.
== END | disposition home or self-care (01) ==
LOC: RADMAMWWP 06:49
PROVIDERS: ATTEND Family Medicine
DX: N28.1 Cyst of kidney, acquired (principal); R19.00 Intra-abdominal and pelvic swelling, mass and lump, unspecified site; R92.8 Other abnormal and inconclusive findings on diagnostic imaging of breast; Z85.3 Personal history of malignant neoplasm of breast; Z78.0 Asymptomatic menopausal state
CPT/HCPCS: 77066; 76705; G0279; 77062

== ENCOUNTER → 2021-09-11 | Outpatient (CLI) | payer MEDICARE, OTHER ==
[2021-09-11 07:57] LABS: African American GFR (CKD) >90 (>60 ml/min/1.73 sqM); Blood Urea Nitrogen 17 mg/dL (7-17); Non-African American GFR(CKD) >90 (>60 ml/min/1.73 sqM)
--- NOTE | 2021-09-11 08:38 | CT ---
EXAMINATION TYPE: CT abdomen w con CT DLP: DLP 709 mGycm, Automated exposure control for dose reduction was used. DATE OF EXAM: 09/11/2021 8:25 AM COMPARISON: CT abdomen pelvis 12/27/2019, abdominal ultrasound 08/07/2021. CLINICAL INDICATION:Female, 66 years old with history of R19.00 intra abdominal swelling/mass/lump; C ystic area of left kidney found on prior ultrasound on 08/07/21. TECHNIQUE: Standard CT of the abdomen following the administration of 70 cc of Isovue [address] material and oral contrast. Coronal and sagittal reformats were performed. FINDINGS: LOWER CHEST: Stable right middle lobe 3 mm pulmonary nodule (series 3, image 5). Pleural-based left l ower lobe 4 mm pulmonary nodule (series 4, image 17). Mild cardiomegaly. ABDOMEN LIVER: Unremarkable GALLBLADDER AND BILE DUCTS: Unremarkable. PANCREAS: Unremarkable. SPLEEN: Unremarkable. ADRENAL GLANDS: Unremarkable. KIDNEYS AND URETERS: The right kidney is unremarkable without evidence of suspicious lesion, hydronep hrosis, or calculus. Left kidney redemonstrates cortical thinning along its superior pole and inferio r pole likely related to remote injury. There is a calyceal diverticulum identified in the midportion . Right inferior pole cyst identified measuring up to 2.8 cm is unchanged. No hydronephrosis or renal calculi. STOMACH AND BOWEL: Small hiatal hernia, duodenum is unremarkable. Colonic diverticulosis without evid ence for acute diverticulitis. No evidence of bowel obstruction. PERITONEUM: No evidence of pneumoperitoneum or free fluid. VASCULATURE: Mild atherosclerotic calcifications are present throughout the abdominal aorta and its b ranches. No evidence of aortic aneurysm. MUSCULOSKELETAL: No acute osseous abnormalities LYMPH NODES: No gross evidence for lymphadenopathy. SOFT TISSUE/ABDOMINAL WALL: Unremarkable IMPRESSION: * No acute abdominal process. * Stable scarring of the left kidney with left inferior pole cyst and calyceal diverticulum. * Colonic diverticulosis without evidence for acute diverticulitis. * Stable right middle lobe pulmonary nodule and additional left lower lobe pulmonary nodule. Conside r follow-up CT chest in 12 months if patient is high risk.
== END | disposition home or self-care (01) ==
LOC: RADCTMAIN 07:07
PROVIDERS: ATTEND Family Medicine
DX: R19.00 Intra-abdominal and pelvic swelling, mass and lump, unspecified site (principal); N28.1 Cyst of kidney, acquired; K57.30 Diverticulosis of large intestine without perforation or abscess without bleeding; R91.1 Solitary pulmonary nodule
CPT/HCPCS: 82565; 84520; 74160; 36415; Q9967 ×2

== ENCOUNTER → 2021-11-06 | Outpatient (CLI) | payer MEDICARE, OTHER ==
--- NOTE | 2021-11-06 10:48 | MR ---
EXAMINATION TYPE: MR shoulder RT wo con DATE OF EXAM: 11/06/2021 COMPARISON: None HISTORY: PAIN IN RIGHT SHOULDER TECHNIQUE: Multiplanar, multisequence imaging of the right shoulder is performed without contrast. FINDINGS: Rotator Cuff: There is abnormal increased intrinsic signal within the rotator cuff, abnormal thickeni ng consistent with tendinopathy, there is a partial near full-thickness tear present at the insertion of the supraspinatus tendon measuring approximately 6 mm. Acromioclavicular Joint: There is arthropathy change, some fluid signal is present in the subacromial subdeltoid bursa, increased intrinsic signal present at the musculotendinous junction of supraspinat us. There is a distal acromial spur. Glenohumeral Joint: Intact Labrum: The labrum appears grossly intact given limitation of non-arthrogram study. Biceps Tendon: The long head of biceps is in normal location within bicipital groove. Bone marrow signal: Pseudocysts are present within the humeral head. Other: Fluid is present along the subscapularis musculotendinous junction IMPRESSION: Partial tear of the rotator cuff tendon, there is associated tendinopathy. Correlate for impingement.
== END | disposition home or self-care (01) ==
LOC: RADMRIMAIN 08:41
PROVIDERS: ATTEND Orthopaedic Surgery Sports Medicine
DX: M75.111 Incomplete rotator cuff tear or rupture of right shoulder, not specified as traumatic (principal)

== ENCOUNTER → 2022-10-23 | Outpatient (CLI) | payer MEDICARE, OTHER ==
[2022-10-23 16:33] LABS: T4, Free (Free Thyroxine) 1.24 ng/dL (0.80-1.80)
== END | disposition home or self-care (01) ==
LOC: LABWHC1 08:51
PROVIDERS: ATTEND Ophthalmology Ophthalmic Plastic and Reconstructive Surgery
DX: H05.242 Constant exophthalmos, left eye (principal); H02.534 Eyelid retraction left upper eyelid
CPT/HCPCS: 36415; 84439; 84445; 84481; 86376; 86800

== ENCOUNTER → 2022-12-05 | Outpatient (CLI) | payer MEDICARE, OTHER ==
--- NOTE | 2022-12-08 01:48 | MM ---
Reason for Exam: Screening (asymptomatic). Last mammogram was performed 1 year(s) and 4 month(s) ago. Patient History: Menarche at age 11. First Full-Term at age 25. Postmenopausal. Patient has history of breast feeding. 2004, Benign Core Biopsy on the left side. Sister had breast cancer, age 54. Risk Values: Stephania 5 year model risk: 4.0%. NCI Lifetime model risk: 12.5%. Prior Study Comparison: 08/10/2020 Bilateral Screening Mammogram, [facility]. 01/30/2021 Bilateral Diagnostic Mammogram, [facility]. 08/07/2021 Bilateral MG 3D diag mammo w/cad ERON, [facility]. Tissue Density: The breast tissue is heterogeneously dense. This may lower the sensitivity of mammography. Findings: Analyzed By CAD. Microclip from prior biopsy as well as chronic nodularity in the left breast. There is no suspicious group of microcalcifications or new suspicious mass in either breast. Overall Assessment: Benign, BI-RAD 2 Management: Screening Mammogram of both breasts in 1 year. See note below in regards to patient's increased five-year Stephania score. Patient should continue monthly self-breast exams. A clinical breast exam by your physician is recommended on an annual basis. This exam should not preclude additional follow-up of suspicious palpable abnormalities. Note on Stephania scores and lifetime risk: 1. A Stephania score greater than 3% is considered moderate risk. If this is the case, consider specialist referral to assess eligibility for a risk reducing agent. 2. If overall lifetime risk for the development of breast cancer is 20% or higher, the patient may qualify for future screening with alternating mammogram and breast MRI. Electronically signed and approved by: Flavia Tafoya M.D. Radiologist
--- NOTE | 2022-12-08 07:58 | BD ---
EXAMINATION TYPE: Axial Bone Density DATE OF EXAM: 12/05/2022 CLINICAL HISTORY: 67 years old Female. ICD-10 CODE: M85.80 DISORDER OF BONE Height: 61 Weight: 156.1 FRAX RISK QUESTIONS: Alcohol (3 or more units per day): no Family History (Parent hip fracture): no Glucocorticoids (More than 3mos): no History of Fracture in Adulthood: yes Secondary Osteoporosis: 1. Type 1 Diabetes: no 2. Hyperthyroidism: no 3. Menopause before 45: no 4. Malnutrition: no 5. Chronic liver disease: no Rheumatoid Arthritis: no Current Tobacco Use: no RISK FACTORS HISTORY OF: Hip Fracture (Right/Left): no Spine Fracture: no History of Wrist Fracture: Lt Wrist 2017 Surgery to Spine/Hip(right/left)/Wrist (right/left): Lt Wrist 2017 Family History of Osteoporosis: no Active: yes Diet low in dairy products/other sources of calcium: no Postmenopausal woman: yes Take estrogen and/or progesterone medications: no Lost more than 2 inches in height since high school: no Frequent falls: no Poor Health: no Hyperparathyroidism: no Adrenal Insufficiency: no MEDICATIONS: Prednisone or other steroids: no Thyroid Medications: no Osteoporosis Medications: no Additional Medications: none Additional History: EXAM MEASUREMENTS: Bone mineral densitometry was performed using the [employer]. Bone mineral density as measured about the Lumbar spine is: ----- L1-L4(G/cm2): 0.891 T Score Values are as follows: ----- L1: -2.1 ----- L2: -3.1 ----- L3: -2.3 ----- L4: -2.2 ----- L1-L4: -2.4 Bone mineral density about the R hip (g/cm2): 0.950 Bone mineral density about the L hip (g/cm2): 0.954 T Score values are as follows: -----R Neck: -1.0 -----L Neck: -0.9 -----R Total: -0.5 -----L Total -0.4 Z Score values are as follows: -----R Neck: -1.0 -----L Neck: -0.9 -----R Total: -0.5 -----L Total: -0.4 Bone mineral density has: increased 7.0 % since study of: 09/12/2020 FRAX%s: The graph provided illustrates a 13.6% chance for a major osteoporotic fx and a 1.2% chance f or the hips probability for fx in 10 years time. IMPRESSION: Osteopenia (T Score between -2.5 and -1). There is slightly increased risk of fracture and the patient may be considered for treatment. Re-Screen 2-5 years. NOTE: T-SCORE=SD OF THE YOUNG ADULT MEAN.
== END | disposition home or self-care (01) ==
LOC: RADMAMWWP 07:02
PROVIDERS: ATTEND Family Medicine
DX: Z12.31 Encounter for screening mammogram for malignant neoplasm of breast (principal); M85.88 Other specified disorders of bone density and structure, other site; Z78.0 Asymptomatic menopausal state; Z80.3 Family history of malignant neoplasm of breast
CPT/HCPCS: 77063; 77067; 77080

== ENCOUNTER → 2022-12-05 | Outpatient (CLI) | payer MEDICARE, OTHER ==
[2022-12-05 09:43] LABS: African American GFR (CKD) >90 (>60 ml/min/1.73 sqM); Blood Urea Nitrogen 15 mg/dL (7-17); Non-African American GFR(CKD) >90 (>60 ml/min/1.73 sqM)
--- NOTE | 2022-12-05 12:21 | CT ---
EXAMINATION TYPE: CT chest w con DATE OF EXAM: 12/05/2022 COMPARISON: 01/18/2020 and 01/01/2021. CT abdomen 09/11/2021 HISTORY: 67-year-old female follow up for abnormal finding on last CT scan Scanned by SO/ TECHNIQUE: Contiguous axial scanning of the chest after the administration of 95mL mL of Isovue 300. Coronal/sagittal reconstructions performed. CT DLP: 224.90mGycm. Automatic exposure control utilized for a dose reduction. FINDINGS: The heart is borderline in size but without pericardial effusion. Ectatic ascending aorta 3.7 cm. 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 Borderline ectatic upper descending thoracic aorta 3.0 cm. Unchanged central left breast nodule measuring 1.1 cm back to at least 01/18/2020 compatible with a be nign etiology. No thoracic lymph adenopathy by CT size criteria. * A 6 mm subpleural pulmonary nodule posterior left base minimally increased from 5 mm in 2020. * Couple 4 mm right middle lobe pulmonary nodules, unchanged. * 4 mm posterior right basilar pulmonary nodule also unchanged from 2020. No new suspicious pulmonary nodule is seen. No consolidation or pleural effusion. There is a small hiatal hernia. Multiple cortical defects redemonstrated upper left kidney suggesting sequela of prior vascular or infectious insults. Bones: Mild degenerative disc disease midthoracic spine. IMPRESSION: 1. A few pulmonary nodules in the lower lungs appear relatively similar. The 4 mm nodules on the righ t are stable back to 2020 and benign. A 6 mm nodule at the left base measures 5 mm in 2020. Given min imal increase, recommend additional annual surveillance follow-up. 2. Small hiatal hernia.
== END | disposition home or self-care (01) ==
LOC: RADCTMAIN 06:44
PROVIDERS: ATTEND Family Medicine
DX: K44.9 Diaphragmatic hernia without obstruction or gangrene (principal); R91.8 Other nonspecific abnormal finding of lung field
CPT/HCPCS: 82565; 84520; 71260; 36415; Q9967

== ENCOUNTER → 2023-05-26 | Outpatient (CLI) | payer MEDICARE ==
[2023-05-26 16:19] LABS: ALT 25 U/L (8-44); AST 24 U/L (13-35); Albumin 4.5 g/dL (3.8-4.9); Albumin/Globulin Ratio 1.96 Ratio (1.60-3.17); Alkaline Phosphatase 97 U/L (41-126); Blood Urea Nitrogen 18.2 mg/dL (9.0-27.0); Calcium 9.6 mg/dL (8.7-10.3); Carbon Dioxide 24.1 mmol/L (21.6-31.8); Chloride 98 mmol/L (96-109); Chol/HDL Ratio 3.26 Ratio; Globulin 2.3 g/dL (1.6-3.3); Glucose 93 mg/dL (70-110); LDL Cholesterol,Calculated 218.8 mg/dL (0.0-131.0); Potassium 4.2 mmol/L (3.5-5.5); Sodium 135 mmol/L (135-145); Total Bilirubin 0.4 mg/dL (0.3-1.2); Total Protein 6.8 g/dL (6.2-8.2); VLDL Calculation 12.24 mg/dL (5.00-40.00)
[2023-05-26 16:29] LABS: HCT 40.3 % (37.2-46.3); HGB 12.5 g/dL (12.0-15.0); MCV 67.7 FL (80.0-97.0); Mean Platelet Volume 11.9 FL (9.5-12.2); NRBC Per 100 WBC 0 X 10*3/uL (0.00-0.01); Platelet Count 302 X 10*3/uL (140-440); RBC 5.95 X 10*6/uL (4.10-5.20); RDW 15.4 % (11.5-14.5); WBC 7.05 X 10*3/uL (4.50-10.00)
[2023-05-26 16:59] LABS: Basophils # (A) 0.05 X 10*3/uL (0.00-0.10); Basophils % (A) 0.7 %; Elliptocytes 2+; Eosinophils # (A) 0.09 X 10*3/uL (0.04-0.35); Eosinophils % (A) 1.3 %; Lymphocytes # (A) 3.26 X 10*3/uL (0.90-5.00); Lymphocytes % (A) 46.2 %; Monocytes # (A) 0.56 X 10*3/uL (0.20-1.00); Monocytes % (A) 7.9 %; Neutrophils # (A) 3.07 X 10*3/uL (1.80-7.70); Neutrophils % (A) 43.6 %
== END | disposition home or self-care (01) ==
LOC: LABWHC1 11:09
PROVIDERS: ATTEND Family Medicine
DX: Z13.9 Encounter for screening, unspecified (principal); E78.5 Hyperlipidemia, unspecified
CPT/HCPCS: 36415; 80053; 80061; 84443; 85025; 86803

== ENCOUNTER → 2023-12-18 | Outpatient (CLI) | payer MEDICARE ==
--- NOTE | 2023-12-18 11:08 | MM ---
Reason for Exam: Screening (asymptomatic). Last mammogram was performed 1 year(s) and 1 month(s) ago. Patient History: Menarche at age 11. First Full-Term at age 25. Postmenopausal. Patient has history of breast feeding. 2004, Benign Core Biopsy on the left side. Sister had breast cancer, age 54. Risk Values: Stephania 5 year model risk: 4.0%. NCI Lifetime model risk: 11.9%. Prior Study Comparison: 01/30/2021 Bilateral Diagnostic Mammogram, [facility]. 08/07/2021 Bilateral MG 3D diag mammo w/cad [facility], [facility]. 12/05/2022 Bilateral MG 3D screening mammo w/cad, [facility]. Tissue Density: There are scattered areas of fibroglandular density. Findings: Analyzed By CAD. Right breast: There is no suspicious group of microcalcifications or new suspicious mass. Left breast: Stable left lesion back to 2019. Likely representing a cyst. There is no suspicious group of microcalcifications or new suspicious mass. Overall Assessment: Negative, BI-RAD 1 Management: Screening Mammogram of both breasts in [address] [facility] will attempt to contact patient to return for supplemental views and ultrasound if indicated. Patient should continue monthly self-breast exams. A clinical breast exam by your physician is recommended on an annual basis. This exam should not preclude additional follow-up of suspicious palpable abnormalities. Note on Stephania scores and lifetime risk: 1. A Stephania score greater than 3% is considered moderate risk. If this is the case, consider specialist referral to assess eligibility for a risk reducing agent. 2. If overall lifetime risk for the development of breast cancer is 20% or higher, the patient may qualify for future screening with alternating mammogram and breast MRI. [facility], , 12/18/2023 11:03 AM. Electronically signed and approved by: Vishnu Villela DO
== END | disposition home or self-care (01) ==
LOC: RADMAMWWP 07:03
PROVIDERS: ATTEND Family Medicine
DX: Z12.31 Encounter for screening mammogram for malignant neoplasm of breast (principal); R92.323 Mammographic fibroglandular density, bilateral breasts; Z78.0 Asymptomatic menopausal state; Z80.3 Family history of malignant neoplasm of breast
CPT/HCPCS: 77063; 77067

== ENCOUNTER → 2023-12-18 | Outpatient (CLI) | payer MEDICARE ==
[2023-12-18 10:27] LABS: HCT 40.9 % (37.2-46.3); HGB 12.6 g/dL (12.0-15.0); MCH 21.2 pg (27.0-32.0); MCHC 30.8 g/dL (32.0-37.0); MCV 68.9 FL (80.0-97.0); Mean Platelet Volume 11.8 FL (9.5-12.2); NRBC Per 100 WBC 0 X 10*3/uL (0.00-0.01); Platelet Count 321 X 10*3/uL (140-440); RBC 5.94 X 10*6/uL (4.10-5.20); RDW 16.3 % (11.5-14.5); WBC 6.89 X 10*3/uL (4.50-10.00)
[2023-12-18 10:46] LABS: Carbon Dioxide 24.3 mmol/L (21.6-31.8); Chloride 103 mmol/L (96-109); Chol/HDL Ratio 3.88 Ratio; Glucose 102 mg/dL (70-110); LDL Cholesterol,Calculated 212.7 mg/dL (0.0-131.0); Potassium 4.1 mmol/L (3.5-5.5); Sodium 138 mmol/L (135-145); VLDL Calculation 17.52 mg/dL (5.00-40.00)
[2023-12-18 10:47] LABS: ALT 25 U/L (8-44); AST 23 U/L (13-35); Albumin 4.1 g/dL (3.8-4.9); Albumin/Globulin Ratio 1.86 Ratio (1.60-3.17); Alkaline Phosphatase 92 U/L (41-126); Calcium 8.9 mg/dL (8.7-10.3); Globulin 2.2 g/dL (1.6-3.3); Total Bilirubin 0.4 mg/dL (0.3-1.2); Total Protein 6.3 g/dL (6.2-8.2)
[2023-12-18 12:14] LABS: Basophils # (M) 0.28 X 10*3/uL (0.00-0.10); Elliptocytes 2+; Eosinophils # (M) 0.41 X 10*3/uL (0.04-0.35); Hypochromasia (M) 2+; Lymphocytes # (M) 2.69 X 10*3/uL (0.90-5.00); Microcytosis (M) 3+; Monocytes # (M) 0.55 X 10*3/uL (0.20-1.00); Neutrophils # (M) 2.96 X 10*3/uL (1.80-7.70); Neutrophils % (M) 43 %
== END | disposition home or self-care (01) ==
LOC: LABWHC1 07:36
PROVIDERS: ATTEND Family Medicine
DX: E78.5 Hyperlipidemia, unspecified (principal)
CPT/HCPCS: 36415; 80053; 80061; 84443; 85025

== ENCOUNTER → 2024-01-05 | Outpatient (CLI) | payer MEDICARE ==
--- NOTE | 2024-01-05 09:04 | US ---
EXAMINATION TYPE: US liver DATE OF EXAM: 01/05/2024 COMPARISON: 09/11/2021 CLINICAL INDICATION: Female, 68 years old with history of K76.0 FATTY (CHANGE OF) LIVER, NOT ELSEWHER E CLASS; weight gain TECHNIQUE: Grayscale and color Doppler imaging of the right upper quadrant was performed. FINDINGS: EXAM MEASUREMENTS: Liver Length: 15.7 cm Gallbladder Wall: 0.1 cm CBD: 0.4 cm Right Kidney: 10.4 x 5.0 x 4.4 cm Pancreas: wnl Liver: wnl Gallbladder: fold seen Evidence for sonographic Stoll's sign: no CBD: wnl Right Kidney: wnl IMPRESSION: No evidence for acute process. [facility], , 01/05/2024 9:02 AM
== END | disposition home or self-care (01) ==
LOC: RADUSWWP 07:26
PROVIDERS: ATTEND Family Medicine
DX: K76.0 Fatty (change of) liver, not elsewhere classified (principal)
CPT/HCPCS: 76705